=== PATIENT | male | born 1985 | race Caucasian/White ===

== ENCOUNTER 2023-08-28 21:55 | Emergency (ER) | payer OTHER, SELFPAY ==
[2023-08-28 21:57] VITALS: BP 143/108; PULSE 77; RESP 16; TEMP 36.6; O2SAT 100; BMI 28.2
--- NOTE | 2023-08-28 22:27 | CT_ITS ---
The [address] [address] Patient Name: JACK PULIDO MRN: [id number] date: 1985 Sex: M Assigned Patient Location: ER Current Patient Location: ER Accession/Order Number: [id number] Exam Date: 08/28/2023 23:00 Report Date: 08/28/2023 23:37 At the request of: RAUL [facility] Procedure: CT abdomen pelvis wo con EXAM: CT abdomen pelvis wo con HISTORY: right renal colic , right-sided flank pain and nausea. COMPARISON: Abdominal x-ray 12/20/2022 TECHNIQUE: Multiple axial views CT abdomen pelvis without IV contrast. Coronal sagittal reformats. FINDINGS: Visualized lung bases demonstrate a 5 mm solid noncalcified pulmonary nodule at the left lower lobe subpleural region (image 12 series 3) and 2-4 mm solid noncalcified pulmonary nodules at the right middle lobe subpleural region (image 3 series 3). Visualized cardiac apex is unremarkable. Small hiatal hernia. Stomach is underdistended. No perigastric inflammatory stranding. Moderate right hepatic steatosis. Gallbladder, pancreas, spleen, adrenal glands, left kidney, and appendix are unremarkable. Prostate measures 3.4 cm transverse diameter. Mild right hydroureteronephrosis secondary to a 4 mm right ureterovesical junction stone. Mild pancolonic fatty remnant wall thickening. Moderate amount of stool at the right large bowel. No evidence for small bowel obstruction, large ascites, or free air. Small fat-containing umbilical hernia without bowel protrusion. No acute bony abnormality. CT/CT abdomen pelvis wo con IMPRESSION: Mild right hydroureteronephrosis secondary to a 4 mm right ureterovesical junction stone. Moderate hepatic steatosis. Mild pancolonic fatty remnant wall thickening reflecting sequela of prior colonic inflammation. No acute pericolonic inflammatory stranding. Electronically authenticated by: VIVIANE MOSQUEDA Date: 08/28/2023 23:37
--- NOTE | 2023-08-28 22:34 | ED_ITS ---
HPI - Abdominal Pain General Chief Complaint: Abdominal Pain Stated Complaint: Flank Pain Time Seen by Provider: 08/28/23 22:20 Source: patient Mode of arrival: walk-in Limitations: no limitations History of Present Illness HPI narrative: abdominal pain. known history of kidney stone diagnosed about 6 months ago. Has been asymptomatic since. Tonight acute onset of right flank pain with radiation to the suprapubic region. Pain has decreased now since it started at home. did have mild nausea and sl. hematuria. No fever. Related Data Home Medications Medication Instructions Recorded Confirmed escitalopram oxalate 10 mg tablet mg 08/28/23 hydroxyzine HCl 25 mg tablet mg 08/28/23 Allergies Allergy/AdvReac Type Severity Reaction Status Date / Time No Known Drug Allergies Allergy Verified 08/28/23 22:01 Review of Systems ROS Status of ROS 10 or more systems reviewed and unremarkable except as noted in history and below [facility] Social History Smoking status: Never smoker Exam Constitutional Vital Signs, click to edit/add: Last Vital Signs Temp 97.9 F 08/28/23 21:57 Pulse 77 08/28/23 21:57 Resp 16 08/28/23 21:57 BP 143/108 H 08/28/23 21:57 Pulse Ox 100 08/28/23 21:57 O2 Del Method Room Air 08/28/23 21:57 Common normals: no apparent distress, oriented x3 and no limitations HENMT Common normals: normocephalic and head/scalp atraumatic Eye Common normals: EOMs intact bilaterally, conjunctivae normal and no scleral icterus Respiratory Common normals: normal respiratory effort, no retractions and no use of accessory muscles Cardio Common normals: regular rate, regular rhythm, S1 normal heart sound and S2 normal heart sound GI Common normals: Normal to inspection, nondistended, normoactive bowel sounds present, soft to palpation and non-tender Extremity Common normals: normal to inspection and full ROM Neuro Common normals: oriented x3, CN's II-XII intact bilaterally, moves all extremities and no focal motor deficits Psych Common normals: mental status grossly normal Course Vital Signs Vital signs: Vital Signs Temperature 97.9 F 08/28/23 21:57 Pulse Rate 77 08/28/23 21:57 Respiratory Rate 16 08/28/23 21:57 Blood Pressure 143/108 H 08/28/23 21:57 Pulse Oximetry 100 08/28/23 21:57 Oxygen Delivery Method Room Air 08/28/23 21:57 Temperature 97.9 F 08/28/23 21:57 Pulse Rate 77 08/28/23 21:57 Respiratory Rate 16 08/28/23 21:57 Blood Pressure 143/108 H 08/28/23 21:57 Pulse Oximetry 100 08/28/23 21:57 Oxygen Delivery Method Room Air 08/28/23 21:57 MDM - Abdominal Pain MDM Narrative Medical decision making narrative: known history of kidney stones. Presents with right sided abdominal pain. UA with microscopic hematuria. CT with 4mm stone at right UPJ. Patient is now asymptomatic after receiving Toradol. Discharged home to follow up with his doctor Lab Data Labs: Lab Results 08/28/23 08/28/23 Range/Units 22:03 22:05 WBC 7.9 (4.0-11.0) 10^3/uL RBC 5.04 (4.70-6.10) 10^6/uL Hgb 15.8 (14.0-18.0) g/dL Hct 46.1 (42.0-54.0) % MCV 91.5 (80.0-94.0) fL MCH 31.3 (25.9-34.0) pg MCHC 34.3 (29.9-35.2) g/dL RDW 12.3 (11.0-15.0) % Plt Count 315 (150-450) 10^3/uL MPV 9.2 L (9.5-13.5) fL Neut % (Auto) 41.4 L (43.0-75.0) % Lymph % (Auto) 42.7 (20.5-60.0) % [place] % (Auto) 13.1 H (1.7-12.0) % Eos % (Auto) 1.8 (0.9-7.0) % Baso % (Auto) 0.6 (0.2-2.0) % Neut # (Auto) 3.3 (1.4-6.5) 10^3/uL Lymph # (Auto) 3.4 (1.2-3.8) 10^3/uL [place] # (Auto) 1.0 H (0.3-0.8) 10^3/uL Eos # (Auto) 0.1 (0.0-0.7) 10^3/uL Baso # (Auto) 0.1 (0.0-0.1) 10^3/uL Abs Immat Gran (auto) 0.03 (0.00-0.03) 10^3/uL Imm/Tot Granulo (auto) 0.4 (0.0-0.5) % Sodium 139 (136-145) mmol/L Potassium 3.3 L (3.5-5.1) mmol/L Chloride 101 (98-107) mmol/L Carbon Dioxide 27.2 (21.0-32.0) mmol/L Anion Gap 14.1 BUN 11.0 (7.0-18.0) mg/dL Creatinine 0.93 (0.70-1.30) mg/dL Est GFR ( Amer) >60 (>=60) Est GFR (Non-Af Amer) >60 (>=60) BUN/Creatinine Ratio 11.8 Glucose 111 H (74-106) mg/dL Lactate 2.3 H* (0.4-2.0) mmol/L Calcium 9.4 (8.5-10.1) mg/dL Urine Color Lt. yellow (YELLOW) Urine Clarity Clear (CLEAR) Urine pH 7.0 (5.0-9.0) Ur Specific [place] 1.025 (1.005-1.025) Urine Protein Negative (NEG/TRACE) mg/dL Urine Glucose (UA) Negative (NEGATIVE) mg/dL Urine Ketones Negative (NEGATIVE) mg/dL Urine Occult Blood Large A (NEGATIVE) Urine Nitrite Negative (NEGATIVE) Urine Bilirubin Negative (NEGATIVE) Urine Urobilinogen 0.2 (0.2-1.0) EU/dL Ur Leukocyte Esterase Negative (NEGATIVE) Urine RBC 10-20 A (0-2) #/HPF Urine WBC None seen (NONE SEEN) #/HPF Ur Squamous Epith Cells None seen (NONE/RARE) #/LPF Urine Crystals None seen (None Seen) #/HPF Urine Bacteria None seen (NONE SEEN) #/HPF Urine Casts None seen (NONE SEEN) #/LPF Urine Mucus None seen (NONE SEEN) Ur Culture Indicated? No Imaging Data Abdominal x-ray: Radiologist's impression: t the request of: RAUL [facility] Procedure: CT abdomen pelvis wo con EXAM: CT abdomen pelvis wo con HISTORY: right renal colic , right-sided flank pain and nausea. COMPARISON: Abdominal x-ray 12/20/2022 TECHNIQUE: Multiple axial views CT abdomen pelvis without IV contrast. Coronal sagittal reformats. FINDINGS: Visualized lung bases demonstrate a 5 mm solid noncalcified pulmonary nodule at the left lower lobe subpleural region (image 12 series 3) and 2-4 mm solid noncalcified pulmonary nodules at the right middle lobe subpleural region (image 3 series 3). Visualized cardiac apex is unremarkable. Small hiatal hernia. Stomach is underdistended. No perigastric inflammatory stranding. Moderate right hepatic steatosis. Gallbladder, pancreas, spleen, adrenal glands, left kidney, and appendix are unremarkable. Prostate measures 3.4 cm transverse diameter. Mild right hydroureteronephrosis secondary to a 4 mm right ureterovesical junction stone. Mild pancolonic fatty remnant wall thickening. Moderate amount of stool at the right large bowel. No evidence for small bowel obstruction, large ascites, or free air. Small fat-containing umbilical hernia without bowel protrusion. No acute bony abnormality. CT/CT abdomen pelvis wo con IMPRESSION: Mild right hydroureteronephrosis secondary to a 4 mm right ureterovesical junction stone. Moderate hepatic steatosis. Mild pancolonic fatty remnant wall thickening reflecting sequela of prior colonic inflammation. No acute pericolonic inflammatory stranding. Electronically authenticated by: BABATUNDE MOSQUEDA Date: 08/28/2023 23:37 Dictated By: Babatunde Mosqueda M.D. Signed By: 08/28/232338 DD/ 36 TD/TT: Discharge Plan Discharge Chief Complaint: Abdominal Pain Clinical Impression: Renal colic on right side Patient Disposition: Home, Self-Care Prescriptions / Home Meds: No Action hydroxyzine HCl 25 mg tablet escitalopram oxalate 10 mg tablet Instructions: Renal Colic (ED) Stand Alone Forms: Portal Instructions Referrals: TRISTON GREEN [Primary Care Provider] - 1 week
[2023-08-28 22:35] LABS: Basophils Absolute Auto 0.1 10^3/uL (0.0-0.1); Basophils Percent Auto 0.6 % (0.2-2.0); Eosinophils Absolute Auto 0.1 10^3/uL (0.0-0.7); Eosinophils Percent Auto 1.8 % (0.9-7.0); Hematocrit 46.1 % (42.0-54.0); Hemoglobin 15.8 g/dL (14.0-18.0); Immature Granulocytes Abs Auto 0.03 10^3/uL (0.00-0.03); Immature Granulocytes Pct Auto 0.4 % (0.0-0.5); Lymphocytes Absolute Auto 3.4 10^3/uL (1.2-3.8); Lymphocytes Percent Auto 42.7 % (20.5-60.0); Mean Corpuscular HGB Conc 34.3 g/dL (29.9-35.2); Mean Corpuscular Hemoglobin 31.3 pg (25.9-34.0); Mean Corpuscular Volume 91.5 fL (80.0-94.0); Mean Platelet Volume 9.2 fL (9.5-13.5); Monocytes Percent Auto 13.1 % (1.7-12.0); Neutrophils Absolute Auto 3.3 10^3/uL (1.4-6.5); Neutrophils Percent Auto 41.4 % (43.0-75.0); Platelet Count 315 10^3/uL (150-450); Red Blood Count 5.04 10^6/uL (4.70-6.10); Red Cell Distribution Width 12.3 % (11.0-15.0); White Blood Count 7.9 10^3/uL (4.0-11.0)
[2023-08-28 22:35] LABS: Bilirubin Urine NEGATIVE (NEGATIVE); Blood Urine LARGE (NEGATIVE); Clarity Urine CLEAR (CLEAR); Color Urine LT. YELLOW (YELLOW); Glucose Urine UA NEGATIVE (NEGATIVE); Ketones Urine NEGATIVE (NEGATIVE); Leukocyte Esterase Urine NEGATIVE (NEGATIVE); Nitrite Urine NEGATIVE (NEGATIVE); Protein Urine NEGATIVE (NEG/TRACE); Specific Gravity Urine 1.025 (1.005-1.025); Urobilinogen Urine 0.2 EU/dL (0.2-1.0)
[2023-08-28 22:36] LABS: Urine Microscopic Indicated YES
[2023-08-28 22:41] LABS: Bacteria Urine NONE SEEN #/HPF (NONE SEEN); Cast Seen? NONE SEEN #/LPF (NONE SEEN); Crystals Seen? None Seen #/HPF (None Seen); Mucus Urine NONE SEEN (NONE SEEN); Squamous Epithelial Cell Urine NONE SEEN #/LPF (NONE/RARE); Urine Culture Indicated NO; WBC Urine NONE SEEN #/HPF (NONE SEEN)
[2023-08-28 22:45] LABS: Anion Gap 14.1; BUN Creatinine Ratio 11.8; Calcium 9.4 mg/dL (8.5-10.1); Carbon Dioxide 27.2 mmol/L (21.0-32.0); Chloride 101 mmol/L (98-107); Estimated GFR (African America >60 (>=60); Estimated GFR (Non-African Ame >60 (>=60); Glucose 111 mg/dL (74-106); Potassium 3.3 mmol/L (3.5-5.1); Sodium 139 mmol/L (136-145)
[2023-08-28] MEDS: 0.9 % SODIUM CHLORIDE 1,000 ML 999 ML IV (22:53)
[2023-08-28] MEDS: KETOROLAC TROMETHAMINE 30 MG/ML VIAL IVP (22:53)
[2023-08-28 22:56] LABS: Lactate/Lactic Acid 2.3 mmol/L (0.4-2.0)
[2023-08-28] MEDS: ONDANSETRON PF 4 MG/2 ML VIAL IV (23:51)
[2023-08-29 00:22] VITALS: BP 148/106
--- OUTSIDE RECORDS SUMMARY | 2023-10-04 17:01 | XMS_ITS | CCD ---
Author Name Unknown Address [address] [place] [id number] Organization [facility] Care Team Providers Care Lock Fitter Name Role Phone HOWIE ALEJANDRO Unavailable Unavailable Peter, Triston Unavailable Peter, Triston Bustillos Primary Care Physician [phone] PETER, DR GOLDSTEIN Admitting Unavailable GIRVIN, DR GOLDSTEIN Attending Unavailable GIRVIN, DR GOLDSTEIN Primary Care Unavailable GIRVIN, DR GOLDSTEIN Consulting Unavailable GIRVIN, DR GOLDSTEIN Admitting Unavailable GIRVIN, DR GOLDSTEIN Attending Unavailable GIRVIN, DR GOLDSTEIN Primary Care Unavailable GIRVIN, DR GOLDSTEIN Admitting Unavailable GIRVIN, DR GOLDSTEIN Attending Unavailable GIRVIN, DR GOLDSTEIN Primary Care Unavailable GIRVIN, DR GOLDSTEIN Consulting Unavailable ZIEBER, DR CINDA Franco Consulting Unavailable CHIU ., DR GARCIA Admitting Unavailable CHIU ., DR GARCIA Attending Unavailable GIRVIN, DR GOLDSTEIN Primary Care Unavailable GIRVIN, DR GOLDSTEIN Consulting Unavailable ZIEBER, DR CINDA Franco Consulting Unavailable CHIU ., DR GARCIA Admitting Unavailable CHIU ., DR GARCIA Attending Unavailable GIRVIN, DR GOLDSTEIN Primary Care Unavailable CHIU ., DR GARCIA Consulting Unavailable ENOCHEBRASHID, DR CINDA Franco Consulting Unavailable RANJIT, John Franco Attending Unavailable Peter, Triston Bustillos Referring Unavailable NILL, Urban Franco Attending Unavailable Medications Current Medications Medication Drug Class(es) Dates Sig (Normalized) Sig (Original) escitalopram 10 mg oral tablet (4 sources) Serotonin Reuptake Inhibitor Start: 11-14-2020 Lexapro 10 mg Tab 15 mg = 1.5 tab(s), Oral, Daily Start Date: 11/14/20 Status: Ordered Start: 10-21-2020 take 1 mg by mouth once daily Lexapro 10 mg Tab mg tab(s), Oral, Daily Start Date: 11/14/20 Status: Ordered hydrOXYzine hydrochloride 25 mg oral tablet (1 source) Antihistamine Start: 08-31-2023 take 1 tablet by mouth every eight hours hydrOXYzine hydrochloride 25 mg Tab 25 mg = 1 tab(s), Oral, q8hr, Refills(s) 0 Start Date: 08/31/23 Status: Ordered loratadine 10 mg oral tablet (3 sources) Start: 09-14-2023 take 1 tablet by mouth once daily loratadine 10 mg Tab 10 mg = 1 tab(s), Oral, Daily, Refills(s) 0 Start Date: 09/14/23 Status: Ordered take 1 tablet by aristides th every twenty-four hours Loratadine 10 MG 1 tablet Orally Once a day prn Active Multivitamin preparation (1 source) Multivitamin Act nicky Completed/Discontinued Medications Medication Drug Class(es) Dates Sig (Normalized) Sig (Original) famotidine 10 mg oral tablet (2 sources) Histamine-2 Receptor Antagonist Start: 10-21-2020 Pepcid AC 10 MG 1 tablet Orally as directed prn Oct, Not-Taking Psyllium (2 sources) Metamucil prn Not-Taking Metamucil Not-Ta wayne Problems Active Problems Problem Classification Problem Date Documented Da te Episodic/Chronic Anxiety disorders (5 sources) Anxiety; Translations: [Anxiety disorder, unspecified] Onset: 12-11-2021 Resolved: 12-11-2021 Chronic Calculus of urinary tract (7 sources) Kidney stone; Translations: [Calculus of kidney] Onset: 12-20-2022 Episodic Disorders of lipid metabolism (4 sources) Dyslipidemia; Translations: [Hyperlipidemia, unspecified] Onset: 12-11-2021 Resolved: 12-11-2021 Chronic Esophageal disorders (2 sources) Acid reflux; Translations: [Gastro-esophageal reflux disease without esophagitis] Chronic Nausea and vomiting (1 source) Nausea with vomiting, unspecified; Translations: [Nausea with vomiting, unspecified] Onset: 01-25-2018 Episodic Other gastrointestinal disorders (1 source) Diarrhea, unspecified; Translations: [Diarrhea, unspecified] Onset: 01-25-2018 Episodic Other male genital disorders (3 sources) Cyst of epididymis; Translations: [Cyst of epididymis] Onset: 12-20-2022 Episodic Other male genital disorders (1 source) Disorder of male genital organ; Translations: [Other specified disorders of the male genital organs] Onset: 12-20-2022 Episodic Other male genital disorders (2 sources) Disorder of testis 11-14-2020 Episodic Other male genital disorders (2 sources) History of testicular disorder 03-07-2020 Episodic Other male genital disorders (2 sources) Pain of left testicle 11-14-2020 Episodic Other male genital disorders (4 sources) Other specified disorders of the male genital organs; Translations: [OTHER SPEC D/O MALE GENITAL ORGANS] Onset: 10-28-2022 Episodic Other nutritional; endocrine; and metabolic disorders (1 source) Overweight 09-14-2023 Episodic Other nutritional; endocrine; and metabolic disorders (1 source) Overweight in adulthood with body mass index of 25 or more but less than 30 09-14-2023 Episodic Other screening for suspected conditions (not mental disorders or infectious disease) (2 sources) Ultrasound scan abnormal; Translations: [Abnormal findings on diagnostic imaging of other specified body structures] Chronic Other skin disorders (1 source) Mass of trunk; Translations: [Localized swelling, mass and lump, trunk] Onset: 09-14-2023 Episodic Other skin disorders (1 source) Mass of subcutaneous tissue of back 09-14-2023 Episodic Unclassified (1 source) Other general symptoms and signs; Translations: [Other general symptoms and signs] Onset: 01-25-2018 Episodic Past or Other Problems Problem Classification Problem Date Documented Da te Episodic/Chronic Other aftercare (5 sources) Other nursing home (current) drug therapy; Translations: [[employer] CURRENT DRUG THERAPY] Onset: 12-11-2021 Resolved: 12-11-2021 Episodic Other liver diseases (4 sources) Abnormal levels of other serum enzymes; Translations: [ABNORMAL LEVELS OTHER SERUM ENZYMES] Onset: 07-15-2022 Episodic Other nutritional; endocrine; and metabolic disorders (1 source) Abnormal weight gain Onset: 12-11-2021 Resolved: 12-11-2021 Episodic Other screening for suspected conditions (not mental disorders or infectious disease) (1 source) Abnormal blood-gas level Onset: 12-11-2021 Resolved: 12-11-2021 Episodic Results Test Name Value Interpretation Reference Range Facil ity RAD - Ultrasound Reporton RAD - Ultrasound Report [id number] Normal [facility] Ambulatory Visit Summaryon 1 11-14-2022 Ambulatory Visit Summary KINGSLEY DURANT:1985 Visit Date:09/14/2023 Ambulatory Visit Instructions Your Diagnosis Subcutaneous mass of back Tests Performed US Chest or Upper Back, Limited -- Results Pending -- Please visit your patient portal for your results or contact your primary care physician. Your Care Team Attending Physician - Urban ALMANZA MD Primary Care Physician - Triston Green DO Referring Physician - Triston Green DO This Is Your Medications List Contact prescribing physician if questions or concerns escitalopram (Lexapro 10 mg Tab) hydrOXYzine (hydrOXYzine hydrochloride 25 mg Tab) loratadine (loratadine 10 mg Tab) Procedures Performed Tonsillectomy. Discharge Vitals Heart Rate (Peripheral) 108 Respiratory Rate 16 Blood Pressure 144/96 Height 182 cm Height 72 in Weight 94.9 kg Weight 208.78 lb BMI 28.65 Medications What How Much When Instructions Unchanged escitalopram (Lexapro 10 mg Tab) 1.5 Tablets By Mouth Every day Contact prescribing physician if questions or concerns Unchanged hydrOXYzine (hydrOXYzine hydrochloride 25 mg Tab) 1 Tablets By Mouth Every 8 hours Contact prescribing physician if questions or concerns Unchanged loratadine (loratadine 10 mg Tab) 1 Tablets By Mouth Every day Contact prescribing physician if questions or concerns Medications and Immunizations Administered Not Given influenza virus vaccine, inactivated, Patient Refuses Allergies No Known Allergies Problems Ongoing - Any problem that you are currently receiving treatment for. Anxiety BMI 28.0-28.9,adult Epididymal cyst Hx of testicular mass Kidney stone Overweight Subcutaneous mass of back Testicle pain Testicular calcification Patient Survey You may receive a survey via text or e-mail asking about your office visit. Please share your experience with us by completing your survey. We appreciate your feedback and thank you for choosing us for your care. Normal [facility] Physician Referralon 023 Physician Referral [id number] Normal [facility] RAD - MISCon 12-23-2022 RAD MIS [id number] :127 Normal [facility] XR KUB 1 VIEWon 12-21-2022 XR KUB 1 VIEW EXAMINATION: XR KUB 1 VIEW HISTORY: Kidney stone on right COMPARISON: No relevant comparison available. FINDINGS: KIDNEY/URETER - RIGHT: No visible renal or ureteral calcifications. KIDNEY/URETER - LEFT: No visible renal or ureteral calcifications. PELVIS: No visible ureteral stones. BOWEL: No abnormal dilation or deviation. BONES: No acute abnormality. OTHER: Negative. No abnormal gaseous collections. IMPRESSION: 1. No appreciable urinary tract calculi. Electronically authenticated by: CINDA WEAVER Date: 2022-12-21 11:40 Normal [facility] Ambulatory Visit Summaryon 0 12-20-2022 Ambulatory Visit Summary KINGSLEY DURANT :1985 Visit Date:12/20/2022 Ambulatory Visit Instructions Your Diagnosis Testicular calcification Kidney stone Epididymal cyst Tests Performed Urnls Dip Stick Auto w/o Microscopy POC 78949 XR Abdomen 1 View -- Results Pending -- Please visit your patient portal for your results or contact your primary care physician. Your Care Team Attending Physician - John CHIU MD Primary Care Physician - Triston Green DO This Is Your Medications List Contact prescribing physician if questions or concerns escitalopram (Lexapro 10 mg Tab) Procedures Performed Tonsillectomy. Discharge Vitals Heart Rate (Peripheral) 120 Respiratory Rate 16 Blood Pressure 161/108 Height 72 in Height 182 cm Weight 180.4 lb Weight 82 kg BMI 24.76 What to do next You Need to Schedule the Following Appointments Follow Up with John CHIU MD, URL When: Where: [facility] [address] [place] [address]- Medications What How Much When Instructions Unchanged escitalopram (Lexapro 10 mg Tab) Every day Contact prescribing physician if questions or concerns Test Results Urnls Dip Stick Auto w/o Microscopy POC 00019 (12/20/2022) Bilirubin Urine Dipstick - Negative Blood Urine Dipstick - Negative Glucose Urine Dipstick - Negative Ketones Urine Dipstick - Negative Leukocytes Urine Dipstick - Negative Nitrite Urine Dipstick - Negative Protein Urine Dipstick - Negative Specific Lyons Urine Dipstick - 1.025 Urine Appearance Urine Dipstick - Clear Urine Color Urine Dipstick - Yellow Urobilinogen Urine Dipstick - Normal 0.2-1 EU/dl pH Urine Dipstick - 7 Allergies No Known Allergies Problems Ongoing - Any problem that you are currently receiving treatment for. Anxiety Epididymal cyst Hx of testicular mass Kidney stone Testicle pain Testicular calcification Education Materials Testicular Self-Exam A self-examination of your testicles (testicular self-exam) involves looking at and feeling your testicles for abnormal lumps or swelling. Several things can cause swelling, lumps, or pain in your testicles. Some of these causes are: ? Injuries. ? Inflammation. ? Infection. ? Buildup of fluids around your testicle (hydrocele). ? Twisted testicles (testicular torsion). ? Testicular cancer. Why is it important to do a testicular self-exam? Self-examination of the testicles and the left and right groin areas may be recommended if you are at risk for testicular cancer. Your groin is where your lower abdomen meets your upper thighs. You may be at risk for testicular cancer if you have: ? An undescended testicle (cryptorchidism). ? A history of previous testicular cancer. ? A family history of testicular cancer. How to do a testicular self-exam The testicles are easiest to examine after a warm bath or shower. They are more difficult to examine when you are cold. This is because the muscles attached to the testicles retract and pull them up higher or into the abdomen. A normal testicle is egg-shaped and feels firm. It is smooth and not tender. The spermatic cord can be felt as a firm, spaghetti-like cord at the back of your testicle. Look and feel for changes ? Stand and hold your penis away from your body. ? Look at each testicle to check for lumps or swelling. ? Roll each testicle between your thumb and forefinger, feeling the entire testicle. Feel for: ? Lumps. ? Swelling. ? Discomfort. ? Check the groin area between your abdomen and upper thighs on both sides of your body. Look and feel for any swelling or bumps that are tender. These could be enlarged lymph nodes. Contact a health care provider if: ? You find any bumps or lumps, such as a small, hard, pea-sized lump. ? You find swelling, pain, or soreness. ? You see or feel any other changes in your testicles. Summary ? A self-examination of your testicles (testicular self-exam) involves looking at and feeling your testicles for any changes. ? Self-examination of the testicles and the left and right groin areas may be recommended if you are at risk for testicular cancer. ? You should check each of your testicles for lumps, swelling, or discomfort. ? You should check for swelling or tender bumps in your groin area between your lower abdomen and upper thighs. This information is not intended to replace advice given to you by your health care provider. Make sure you discuss any questions you have with your health care provider. Document Released: 01/09/2002 Document Revised: 01/24/2020 Document Reviewed: 08/29/2017 [employer] Patient Education ? 2019 [employer]. Normal [facility] Patient Educationon 12-21-19 Patient Education Urology Testicular Self-Exam A self-examination of your testicles (testicular self-exam) involves looking at and feeling your testicles for abnormal lumps or swelling. Several things can cause swelling, lumps, or pain in your testicles. Some of these causes are: ? Injuries. ? Inflammation. ? Infection. ? Buildup of fluids around your testicle (hydrocele). ? Twisted testicles (testicular torsion). ? Testicular cancer. Why is it important to do a testicular self-exam? Self-examination of the testicles and the left and right groin areas may be recommended if you are at risk for testicular cancer. Your groin is where your lower abdomen meets your upper thighs. You may be at risk for testicular cancer if you have: ? An undescended testicle (cryptorchidism). ? A history of previous testicular cancer. ? A family history of testicular cancer. How to do a testicular self-exam The testicles are easiest to examine after a warm bath or shower. They are more difficult to examine when you are cold. This is because the muscles attached to the testicles retract and pull them up higher or into the abdomen. A normal testicle is egg-shaped and feels firm. It is smooth and not tender. The spermatic cord can be felt as a firm, spaghetti-like cord at the back of your testicle. Look and feel for changes ? Stand and hold your penis away from your body. ? Look at each testicle to check for lumps or swelling. ? Roll each testicle between your thumb and forefinger, feeling the entire testicle. Feel for: ? Lumps. ? Swelling. ? Discomfort. ? Check the groin area between your abdomen and upper thighs on both sides of your body. Look and feel for any swelling or bumps that are tender. These could be enlarged lymph nodes. Contact a health care provider if: ? You find any bumps or lumps, such as a small, hard, pea-sized lump. ? You find swelling, pain, or soreness. ? You see or feel any other changes in your testicles. Summary ? A self-examination of your testicles (testicular self-exam) involves looking at and feeling your testicles for any changes. ? Self-examination of the testicles and the left and right groin areas may be recommended if you are at risk for testicular cancer. ? You should check each of your testicles for lumps, swelling, or discomfort. ? You should check for swelling or tender bumps in your groin area between your lower abdomen and upper thighs. This information is not intended to replace advice given to you by your health care provider. Make sure you discuss any questions you have with your health care provider. Document Released: 01/09/2002 Document Revised: 01/24/2020 Document Reviewed: 08/29/2017 [employer] Patient Education ? 2019 [employer]. Normal [facility] Reminderson 12-20-2022 Reminders - From: Duyen Jones To: EU Beto Chiu; Sent: 12/20/2022 14:14:18 EST Show up: 09/16/2025 14:14:00 EST Subject: scrotal US and F/u in 2025 Due Date/Time: 10/07/2025 14:14:00 EST Reminder/Recall Pt is due in December 2025 for 3 year fu with scrotal US Normal [facility] Urology Office/Clinic Noteon 12-20-2022 Urology Office/Clinic Note Chief Complaint 2yr Scrotal US HPI Staff 2yrs w/Scrotal US due to epididymal cyst, testicular calcification & testicular pain. Scrotal US done 10/28/22 Pt denies any testicular/scrotal complaints at this time. B/P taken twice today. Both times +160/+100. Pt states he has seen his PCP for this, BP increases every time he sees a DR. History of Present Illness Tests reviewed: reviewed UA. I have reviewed the previous health record information and history for this patient from Dr. Chiu. I have reviewed and verified the staff HPI to be accurate for this encounter. There have been no associated fever, chills, flank pain, or blood in the urine. Denies any urinary infections since last encounter. Review of Systems PHQ Score Initial Depression Screen Score: 0 ROS - Provider Constitutional: denies weight loss, denies hot flashes. Eyes: denies eye problems. Gastrointestinal: denies nausea, denies vomiting. Cardiovascular: denies chest pain or angina. Integumentary: no dryness Musculoskeletal: denies musculoskeletal symptoms. ENMT: denies otolaryngeal symptoms. Respiratory: no shortness of breath. Heme/Lymph: denies easy bleeding tendency, denies easy bruising tendency. Psychiatric: no confusion, no anxiety. Genitourinary: See HPI. Physical Exam Vitals & Measurements HR: 120(Peripheral) RR: 16 BP: 161/108 HT: 72 in HT: 182 cm WT: 82 kg WT: 180.4 lb BMI: 24.76 General Appearance: alert, no distress, well nourished, well developed male. Genitourinary: normal scrotum, normal testes, normal urethra, normal epididymis, normal vas deferens/spermatic cord. Flank Pain: none. Bladder: nonpalpable. Assessment/Plan 1. 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 Scrotal US done 10/28/22 shows stable 2 mm calcification within left testicle of doubtful clinical significance. UA today negative for blood and infection. Denies any testicular/scrotal complaints at this time. Explained higher statistical association of testicular cancer with presence of testicular calcifications. Will continue to monitor. -scrotal US in 3 years -regular self testicular exams 2. Kidney stone (N20.0: Calculus of kidney) RENETTA done 07/15/22 showed incidental finding of a right nonobstructing 7 x 5 x 4 mm stone. Has not had any pain. Pt's first stone. Recommended ESWL if stone is visible on x-ray. If not visible on x-ray but pt wishes to proceed with tx, would have to proceed with ureteroscopy/laser litho. The procedure risks, benefits, details and treatment alternatives have been discussed with the patient. These include blood in the urine, infection, bleeding around the kidney, kidney bruising, inability to break up the stone, need for blood transfusion, blockage from stone fragments, and need for additional procedures, among others. Full informed consent has been obtained. Follow up after below or sooner if needed. Pt understands and agrees with plan. -KUB now 3. Epididymal cyst (N50.3: Cyst of epididymis) Scrotal US 11/03/20 shows stable 3 mm left epididymal cyst. Scrotal US done 10/28/22 shows 2 mm benign-appearing cyst within the had of the epididymis. Benign, not worrisome. -regular self testicular exams Follow-up With When Contact Information RANJIT HART, John Franco, URL [facility] [address], [place] [address]- Additional Instructions: KUB now Patient Education Testicular Self-Exam I, Darlene Dueñas, personally scribed for Dr. Chiu on 12/20/2022 14:05:14. . Documentation recorded by the scribe, Darlene Dueñas, accurately reflects the services(s) I performed and decisions made by me. Authenticated by Dr. Chiu on 12/20/2022 14:07:47. Problem List/Past Medical History Ongoing Anxiety Epididymal cyst Hx of testicular mass Kidney stone Testicle pain Testicular calcification Historical No qualifying data Procedure/Surgical History Tonsillectomy. Medications Lexapro 10 mg Tab, Oral, Daily Allergies No Known Allergies Social History Alcohol - Low Risk, 03/05/2020 Tobacco Former smoker, quit more than 30 days ago Tobacco Use:. Never Smokeless Tobacco Use:., 12/20/2022 Family History Malignant granular cell myoblastoma: Child. Primary malignant neoplasm of lung: Father. Immunizations Vaccine Date Status influenza virus vaccine, inactivated 08/27/2019 Recorded measles/mumps/rubella virus vaccine 02/12/2000 Recorded Lab Results Ambulatory Point of Care Results Bilirubin Urine Dipstick: Negative (12/20/22 12:59:00) Blood Urine Dipstick: Negative (12/20/22 12:59:00) Glucose Urine Dipstick: Negative (12/20/22 12:59:00) Ketones Urine Dipstick: Negative (12/20/22 12:59:00) Leukocytes Urine Dipstick: Negative (12/20/22 12:59:00) Nitrite Urine Dipstick: Negative (12/20/22 12:59:00) Protein (more content not included)... Normal [facility] Comment on above: Result Comment: Elec tronically Signed By: John CHIU MD\.br\Date and Time Signed: 12/20/22 14:07 EST\.br\Electronically Co-Signed By: Darlene Dueñas\.br\Date and Time Co-Signed: 12/20/22 14:05 EST RAD - Ultrasound Reporton RAD - Ultrasound Report [id number]:127 Normal [facility] US SCROTUMon 10-28-2022 US SCROTUM EXAMINATION: US SCRO LAURA HISTORY: Pain in testicle ; follow-up testicular calcification COMPARISON: Ultrasound scrotum 11/03/2020 TECHNIQUE: High-resolution sonographic imaging of the scrotum and contents was performed. FINDINGS: RIGHT: TESTICLE: Homogeneous echotexture. No visible mass. Color Doppler flow is present. Spectral Doppler demonstrates normal arterial waveform and flow, 6/2 cm/s (PSV/EDV), and normal venous wave flow averaging 1 cm/s. EPIDIDYMIS: Normal size and echogenicity. OTHER: None. LEFT: TESTICLE: Stable 2 mm calcification within inferior pole. Homogeneous echotexture. No visible mass. Color Doppler flow is present. Spectral Doppler demonstrates arterial waveform and flow, 3/2 cm/s (PSV/EDV), and normal venous flow averaging 1 cm/s. EPIDIDYMIS: Incidental 2 mm benign-appearing cyst within head of epididymis. OTHER: None. IMPRESSION: 1. Stable 2 mm calcification within left testicle of doubtful clinical significance. No appreciable mass or heterogeneity. Electronically authenticated by: CINDA WEAVER Date: 2022-10-28 15:47 Normal [facility] Physician Orderon 10-14-2022 Physician Order [id number]:127 Normal [facility] US SINGLE QUAD RT UPPERon US SINGLE QUAD RT UPPER EXAMINATION: US SINGLE QUAD RT UPPER HISTORY: High enzyme level in serum ; elevated liver enzymes COMPARISON: No relevant comparison available. TECHNIQUE: Transabdominal evaluation of the right upper quadrant. FINDINGS: LIVER: Increased echogenicity consistent with fatty infiltration; focal area of fat sparing near gallbladder fossa. Normal size and contour. Color Doppler demonstrates patent hepatic veins. PORTAL VEIN: Duplex Doppler demonstrates normal hepatopetal flow pattern with flow velocity averaging 29 cm/s. GALLBLADDER: No visible gallstones, wall thickening, or pericholecystic free fluid. Negative sonographic Godinez's sign. BILIARY: No abnormal dilation or stones. Common bile duct diameter is within normal limits. PANCREASE: No visible mass, abnormal atrophy, or duct dilation. KIDNEY: Contains a nonobstructing 7 x 5 x 4 mm stone. Size: 13.3 x 5.7 x 5.7 cm IMPRESSION: 1. Elevated hepatic echotexture suggestive of fatty infiltration. Electronically authenticated by: CINDA WEAVER Date: 2022-07-15 08:39 Normal [facility] l CBC AUTO DIFFon 07-01-2022 BASO # 0.0 103/ul Normal 0.0-0.1 [facility] Comment on above: Performed By: #### C BC #### [facility] [address] [place] [address] Dr. Patti Goncalves Basophils/100 WBC (Bld) 0.5 % Normal 0.2-2.0 [facility] Comment on above: Performed By: #### C BC #### [facility] [address] [place], [place] [address] Dr. Patti Goncalves EO # 0.2 103/ul Normal 0.0-0.7 [facility] Comment on above: Performed By: #### C BC #### [facility] [address] [place] [address] Dr. Patti Goncalves Eosinophils/100 WBC (Bld) 3.2 % Normal 0.9-7.0 [facility] Comment on above: Performed By: #### C BC #### [facility] [address] [place] [address] Dr. Patti Goncalves Erythrocyte distribution wid th (RBC) [Ratio] 12.6 % Normal 11.0-15.0 [facility] Comment on above: Performed By: #### C BC #### [facility] [address] [place] [address] Dr. Patti Goncalves Hematocrit (Bld) [Volume fraction] 47.1 % Normal 4 2.0-54.0 [facility] Comment on above: Performed By: #### C BC #### [facility] [address] [place] [address] Dr. Patti Goncalves Hemoglobin (Bld) [Mass/Vol] 16.2 g/dL Normal 14.0-18. 0 [facility] Comment on above: Performed By: #### C BC #### [facility] [address] [place] [address] Dr. Patti Goncalves IG # 0.02 10e3/ul Normal 0.00-0.03 [facility] Comment on above: Performed By: #### C BC #### [facility] [address] [place] [address] Dr. Patti Goncalves IG % 0.3 % Normal 0.0-0.5 [facility] Comment on above: Performed By: #### C BC #### [facility] [address] [place] [address] Dr. Patti Goncalves LYMPH # 1.9 103/ul Normal 1.2-3.8 [facility] Comment on above: Performed By: #### C BC #### [facility] [address] [place] [address] Dr. Patti Goncalves Lymphocytes/100 WBC (Bld) 24.5 % Normal 20.5-60.0 [facility] Comment on above: Performed By: #### C BC #### [facility] [address] [place] [address] Dr. Patti Goncalves MANUAL DIFF REQ NO Normal [facility] Comment on above: Performed By: #### C BC #### [facility] [address] [place] [address] [address] Patti Goncalves MCH (RBC) [Entitic mass] 31.4 pg Normal 25.9-34.0 [facility] Comment on above: Performed By: #### C BC #### [facility] [address] [place] [address] Dr. Patti Goncalves MCHC (RBC) [Mass/Vol] 34.4 g/dL Normal 29.9-35.2 [facility] Comment on above: Performed By: #### C BC #### [facility] [address] [place] [address] Dr. Patti Goncalves MCV (RBC) [Entitic vol] 91.3 fL Normal 80.0-94.0 [facility] Comment on above: Performed By: #### C BC #### [facility] [address] [place] [address] Dr. Patti Goncalves MONO # 1.1 103/ul Critically high 0.3-0.8 [facility] Comment on above: Performed By: #### C BC #### [facility] [address] [place] [address] Dr. Patti Goncalves Monocytes/100 WBC (Bld) 14.2 % Critically high 1.7-12. 0 [facility] Comment on above: Performed By: #### C BC #### [facility] [address] [place] [address] Dr. Patti Goncalves NEUT # 4.4 103/ul Normal 1.4-6.5 [facility] Comment on above: Performed By: #### C BC #### [facility] [address] [place] [address] Dr. Patti Goncalves Neutrophils/100 WBC (Bld) 57.3 % Normal 43.0-75.0 [facility] Comment on above: Performed By: #### C BC #### [facility] [address] [place] [address] Dr. Patti Goncalves Platelet mean volume (Bld) [Entitic vol] 8.9 fL Critically low 9.5-13.5 [facility] Comment on above: Performed By: #### C BC #### [facility] [address] [place] [address] Dr. Patti Goncalves PLT 272 103/ul Normal 150-450 [facility] Comment on above: Performed By: #### C BC #### [facility] [address] [place] [address] Dr. Patti Goncalves RBC 5.16 106/ul Normal 4.70-6.10 [facility] Comment on above: Performed By: #### C BC #### [facility] [address] [place] [address] Dr. Patti Goncalves WBC 7.6 103/ul Normal 4.0-11.0 [facility] Comment on above: Performed By: #### C BC #### [facility] [address] [place] [address] Dr. Patti Goncalves LIPID PROFILEon 07-01-2022 CHOL-HDL RATIO NORM SEE BELOW Normal [facility] Comment on above: Result Comment: 3.3 - 4.4 LOW RISK 4.4 - 7.1 AVERAGE RISK 7.1 - 11.0 MODERATE RISK >11.0 HIGH RISK Performed By: #### L IPID, CMP #### [facility] [address] [place] [address] Dr. Patti Goncalves Cholesterol [Mass/Vol] 149 mg/dL Normal <=200 [facility] Comment on above: Performed By: #### L IPID, CMP #### [facility] [address] [place] [address] Dr. Patti Goncalves Cholesterol in HDL [Mass/Vol] 47 mg/dL Normal 40-60 [facility] Comment on above: Performed By: #### L IPID, CMP #### [facility] [address] [place] [address] Dr. Patti Goncalves Cholesterol in LDL [Mass/Vol] 89.6 mg/dL Normal [facility] Comment on above: Performed By: #### L IPID, CMP #### [facility] [address] [place] [address] Dr. Patti Goncalves Cholesterol.total/Cholestero l in HDL [Mass ratio] 3.2 {ratio} Normal [facility] Comment on above: Performed By: #### L IPID, CMP #### [facility] [address] [place] [address] Dr. Patti Goncalves HDL NORMAL > or = 60 mg/dl - LO W CARDIOVASCULAR RISK <40 mg/dl - HIGH CARDIOVASCULAR RISK Normal [facility] Comment on above: Performed By: #### L IPID, CMP #### [facility] [address] [place] [address] Dr. Patti Goncalves LDL CALC NORMAL SEE BELOW Normal [facility] Comment on above: Result Comment: <100 mg/dl OPTIMAL 100 - 129 mg/dl NEAR OR ABOVE OPTIMAL 130 - 159 mg/dl BORDERLINE HIGH 160 - 189 mg/dl HIGH >190 mg/dl VERY HIGH Performed By: #### L IPID, CMP #### [facility] [address] [place] [address] Dr. Patti Goncalves Triglyceride [Mass/Vol] 62 mg/dL Normal <=150 [facility] Comment on above: Performed By: #### L IPID, CMP #### [facility] [address] [place] [address] Dr. Patti Goncalves VLDL CALC 12.4 mg/dL Normal [facility] Comment on above: Performed By: #### L IPID, CMP #### [facility] [address] [place] [address] Dr. Patti Goncalves PROF 14(COMP METB)on 022 Albumin [Mass/Vol] 4.4 g/dL Normal 3.4-5.0 [facility] Comment on above: Performed By: #### L IPID, CMP #### [facility] [address] [place] [address] Dr. Patti Goncalves Albumin/Globulin [Mass ratio] 1.5 {ratio} Normal [facility] Comment on above: Performed By: #### L IPID, CMP #### [facility] [address] [place] [address] Dr. Patti Goncalves ALP [Catalytic activity/Vol] 62 U/L Normal 46-116 [facility] Comment on above: Performed By: #### L IPID, CMP #### [facility] [address] [place] [address] [address] Patti Goncalves ALT [Catalytic activity/Vol] 65 U/L Critically high 16 -63 [facility] Comment on above: Performed By: #### L IPID, CMP #### [facility] [address] [place] [address] [address] Patti Goncalves Anion gap [Moles/Vol] 9.8 mmol/L Normal [facility] Comment on above: Performed By: #### L IPID, CMP #### [facility] [address] [place] [address] [address] Patti Goncalves AST [Catalytic activity/Vol] 20 U/L Normal 15-37 [facility] Comment on above: Performed By: #### L IPID, CMP #### [facility] [address] [place] [address] [address] Patti Goncalves Bilirubin [Mass/Vol] 1.0 mg/dL Normal 0.2-1.0 [facility] Comment on above: Performed By: #### L IPID, CMP #### [facility] [address] [place] [address] Dr. Patti Goncalves Calcium [Mass/Vol] 9.0 mg/dL Normal 8.5-10.1 [facility] Comment on above: Performed By: #### L IPID, CMP #### [facility] [address] [place] [address] [address] Patti Goncalves Chloride [Moles/Vol] 101 mmol/L Normal 98-107 [facility] Comment on above: Performed By: #### L IPID, CMP #### [facility] [address] [place] [address] Dr. Patti Goncalves CO2 [Moles/Vol] 29.1 mmol/L Normal 21.0-32.[address] [facility] Comment on above: Performed By: #### L IPID, CMP #### [facility] [address] [place] [address] Dr. Patti Goncalves Creatinine [Mass/Vol] 0.86 mg/dL Normal 0.70-1.30 [facility] Comment on above: Performed By: #### L IPID, CMP #### [facility] [address] [place] [address] Dr. Patti Goncalves EGFR-AF FINNISH >60 Normal >=[address] [facility] Comment on above: Performed By: #### L IPID, CMP #### [facility] [address] [place] [address] [address] Patti Goncalves EGFR-NON AF FINNISH >60 Normal >=60 [facility] Comment on above: Performed By: #### L IPID, CMP #### [facility] [address] [place] [address] Dr. Patti Goncalves Globulin (S) [Mass/Vol] 3.0 g/dL Normal [facility] Comment on above: Performed By: #### L IPID, CMP #### [facility] [address] [place] [address] Dr. Patti Goncalves Glucose [Mass/Vol] 93 mg/dL Normal 74-106 [facility] Comment on above: Performed By: #### L IPID, CMP #### [facility] [address] [place] [address] Dr. Patti Goncalves Potassium [Moles/Vol] 3.9 mmol/L Normal 3.5-5.1 [facility] Comment on above: Performed By: #### L IPID, CMP #### [facility] [address] [place] [address] Dr. Patti Goncalves Protein [Mass/Vol] 7.4 g/dL Normal 6.4-8.2 [facility] Comment on above: Performed By: #### L IPID, CMP #### [facility] [address] [place] [address] Dr. Patti Goncalves Sodium [Moles/Vol] 136 mmol/L Normal 136-145 [facility] Comment on above: Performed By: #### L IPID, CMP #### [facility] [address] [place] [address] Dr. Patti Goncalves Urea nitrogen [Mass/Vol] 10.0 mg/dL Normal 7.0-18.0 [facility] Comment on above: Performed By: #### L IPID, CMP #### [facility] [address] [place] [address] [address] Patti Goncalves Urea nitrogen/Creatinine [Mass ratio] 11.6 mg/mg Normal [facility] Comment on above: Performed By: #### L IPID, CMP #### [facility] [address] [place] [address] [address] Patti Goncalves Basic Metabolic Panlon 01-25 Anion gap 18 mmol/L Normal 9-18 [facility] Comment on above: Performed By: #### B SIMONE, MG1 ####[facility] [place] [phone] Calcium 10.6 mg/dL High 8.5-10.2 [facility] Comment on above: Performed By: #### B SIMONE, MG1 ####[facility] [phone] Chloride 99 mmol/L Normal 97-105 [facility] Comment on above: Performed By: #### B SIMONE, MG1 ####[facility] [phone] CO2 24 mmol/L Normal 22-30 [facility] Comment on above: Performed By: #### B SIMONE, MG1 ####[facility] [phone] Creatinine 1.09 mg/dL Normal 0.73-1.22 [facility] Comment on above: Performed By: #### B SIMONE, MG1 ####[facility] [address] [place] [phone] eGFR (non-black) mL/min/{1.73_m2} Normal [facility] Comment on above: Result Comment: eGFR (Estimated GFR) Units of measure: mL/min/1.73 meters squaredeGFR is derived from the reexpressed MDRD Study equation using the following parameters: serum creatinine, age, gender and race. The creatinine assay has been calibrated to be traceable to IDMS.An eGFR <60 mL/min/1.73m2 for >3 months is consistent with chronic kidney disease. Refer to KDOQI guidelines for clinical interpretation.In patients with unstable renal function, e.g. those with acute kidney injury, the eGFR may not accurately reflect actual GFR. Performed By: #### B SIMONE, MG1 ####[facility], [place] [phone] Glucose mass conc 110 mg/dL High 74-99 [facility] Comment on above: Result Comment: The [place] [employer] (ADA) provides guidance for cutoff values for fasting glucose and random glucose. The ADA defines fasting as no caloric intake for at least 8 hours. Fasting plasma glucose results between 100 to 125 mg/dL indicate increased risk for diabetes (prediabetes).Fasting plasma glucose results greater than or equal to 126 mg/dL meet the criteria for diagnosis of diabetes. In the absence of unequivocal hyperglycemia, results should be confirmed by repeat testing. In a patient with classic symptoms of hyperglycemia or hyperglycemic crisis, random plasma glucose results greater than or equal to 200 mg/dL meet the criteria for diagnosis of diabetes.Reference: Standards of Medical Care in Diabetes 2016, [place] [employer] Association. Diabetes Care. 2016.39(Suppl 1). Performed By: #### B SIMONE, MG1 ####[facility] [address] [place], [place] [phone] Potassium molar conc 4.0 mmol/L Normal 3.7-5.1 [facility] Comment on above: Performed By: #### B SIMONE, MG1 ####[facility] [address] [place], [place] [phone] Sodium 141 mmol/L Normal 136-144 [facility] Comment on above: Performed By: #### B SIMONE, MG1 ####[facility] [address] [place], [place] [phone] Urea nitrogen 18 mg/dL Normal 9-24 [facility] Comment on above: Performed By: #### B MP, MG1 ####[facility] [address] [place], [place] [phone] ED NOTEon 01-25-2018 ED NOTE HNO ID: [id number] Author: Nneka LopezCt) GALLO Menendez Service: Emergency Medicine Author Type: Field Account Manager Type: ED Notes Filed: 01/25/2018 6:02 AM Note Text: Updating Pt Vs Normal [facility] ED NOTE HNO ID: [id number] Author: Nneka LopezCt) GALLO Menendez Service: Emergency Medicine Author Type: Field Account Manager Type: ED Notes Filed: 01/25/2018 1:27 AM Note Text: Took Pt vs Normal [facility] ED PROV NOTEon 01-25-2018 ED PROV NOTE HNO ID: [id number] thor: EITAN Shearerervice: [facility] MedicineAuthor Type: PhysicianType: ED Provider NotesFiled: 01/25/2018 4:18 PMNote Text:ED Provider NotePatient Name: Kingsley DurantMRN: [id number] DATE: 01/25/18HistoryPatient presents with:Flu Like Symptoms: Pt's son on M50, tested flu B+. Pt sts has started withsymptoms as well.HPI Comments: The patient is a 32-year-old male presents the emergencydepartment with cough, congestion, body aches, nausea, diarrhea. He hasno significant past medical history. The patient's son is admitted to thehospital and is positive for influenza B. Patient states he feelsdehydrated. His cough is nonproductive. His body aches are 4 out of 10and dull in nature. Nothing makes them worse and nothing makes thembetter. He reports a few episodes of nausea and diarrhea. 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 Negative for ear pain, sinus pressure andsore throat.Eyes: Negative for photophobia, redness and visual disturbance.Respiratory: Positive for cough. Negative for shortness of breath andwheezing.Cardiovascular: Negative for chest pain, palpitations and leg swelling.Gastrointestinal: Positive for diarrhea, nausea and vomiting. Negative forabdominal pain.Endocrine: Negative for polydipsia, polyphagia and polyuria.Genitourinary: Negative for dysuria, flank pain, frequency and urgency.Musculoskeletal: Negative for back pain, myalgias, neck pain and neckstiffness.Skin: Negative for color change, pallor, rash and wound.Neurological: Negative for dizziness, tremors, syncope and weakness.Physical ExamBP 139/90 Pulse 125 Temp (Src) 98 (Oral) Resp 20 Ht 6' 0 (1.83m) Wt 185 lb (83.9kg) SpO2 100% BMI 25.08 kg/(m2).Physical ExamConstitutional: He is oriented to person, place, and time. He appearswell-developed and well-nourished. No distress.HENT:Head: Normocephalic and atraumatic.Mouth/Throat: Uvula is midline, oropharynx is clear and moist and mucousmembranes are normal.Eyes: Conjunctivae are normal. Right eye exhibits no discharge. Left eyeexhibits no discharge. No scleral icterus.Neck: Trachea normal, normal range of motion and full passive range ofmotion without pain. Neck supple. No JVD present. Carotid bruit is notpresent. No tracheal deviation present.Cardiovascular: Normal rate, regular rhythm, S1 normal, S2 normal andnormal heart sounds. PMI is not displaced. Exam reveals no gallop, noS3, no S4 and no friction rub.No murmur heard.Pulses: Carotid pulses are 2+ on the right side, and 2+ on the left side.Pulmonary/Chest: Effort normal and breath sounds normal. No accessorymuscle usage. No respiratory distress. He has no decreased breath sounds.He has no wheezes. He has no rhonchi. He has no rales. He exhibits notenderness.Abdominal: Soft. Bowel sounds are normal. He exhibits no distension and nomass. There is no tenderness. There is no rebound, no guarding and no CVAtenderness.Musculoskeletal: Normal range of motion. He exhibits no edema ortenderness.Neurological: He is alert and oriented to person, place, and time. GCS eyesubscore is 4. GCS verbal subscore is 5. GCS motor subscore is 6.Skin: Skin is warm and dry. No rash noted. He is not diaphoretic. Nocyanosis or erythema. No pallor. Nails show no clubbing.Psychiatric: He has a normal mood and affect. His behavior is normal.Nursing note and vitals reviewed.Diagnostic TestingED Labs Ordered and ReviewedBASIC METABOLIC PNL - Abnormal; Notable for the following: Result Value Ref Range Glucose 110 (*) 74 - 99 mg/dL Calcium 10.6 (*) 8.5 - 10.2 mg/dL All other components within normal limitsFLU A/B B/O - NormalMAGNESIUM BLDInfluenza A and B were negative. Magnesium within limits. BMPunremarkable.ProceduresMedical Decision Making / ED CourseED CourseThe patient presented the emergency department with flulike symptoms. Hisson is upstairs in the hospital admitted. Patient was treated with 2 L ofnormal saline, Phenergan, Zofran with good relief of symptoms. Hisinfluenza A and B are negative. Electrolytes are unremarkable. Lung examis benign. Abdominal exam is benign. His vital signs are stable.Patient was improved at the end of the visit. He requested to bedischarged to go back up to the hospital. He was discharged in stablecondition. He will follow-up as below.Encounter Diagnosis ICD-10-CM1. Non-intractable vomiting with nausea, unspecified vomiting type R11.22. Diarrhea, unspecified type R19.73. Flu-like symptoms R68.06Rzdi4. Discharge home2. Take Phenergan as needed3. Follow-up with primary care provider as needed4. 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 My mai findings include:History is as above, 2 y/o son and are seriously ill causing a greatdeal of stress. Additionally, the son is flu positive.Exam: as above, much improved after ivf and medsAssessment/Plan: Dehydration, nausea, follow-up PCPSignature: ALEXX Shearerate: 01/25/2018Time: 4:16 Deann Alejandro MD01/25/18 1618 Normal [facility] Magnesiumon 01-25-2018 Magnesium 2.3 mg/dL Normal 1.7-2.3 [facility] Comment on above: Performed By: #### B MP, MG1 ####[facility] [address] [place], [place] [phone] Vital Signs Date Time Vital Sign Value Performing Clinician Facility 09-14-2023 13:17-0500 Blood Pressure Location Urban ALMANZA [facility] 09-14-2023 13:17-0500 Diastolic blood pressure 96 mm[Hg] Urban ALMANZA [facility] 09-14-2023 13:17-0500 Heart rate 108 /min Urban ALMANZA [facility] 09-14-2023 13:17-0500 Respiratory rate 16 /min Urban ALMANZA [facility] 09-14-2023 13:17-0500 Systolic blood pressure 144 mm[Hg] Urban ALMANZA [facility] 12-20-2022 13:07-0500 Diastolic blood pressure 108 mm[Hg] John [facility] 12-20-2022 13:07-0500 Mean blood pressure 126 mm[Hg] John [facility] 12-20-2022 13:07-0500 Systolic blood pressure 161 mm[Hg] John [facility] 12-20-2022 13:01-0500 Blood Pressure Location John [facility] 12-20-2022 13:01-0500 Diastolic blood pressure 112 mm[Hg] John [facility] 12-20-2022 13:01-0500 Heart rate 120 /min John [facility] 12-20-2022 13:01-0500 Respiratory rate 16 /min John [facility] 12-20-2022 13:01-0500 Systolic blood pressure 167 mm[Hg] John [facility] 12-11-2021 09:10-0500 Body height 179.71 cm [place] Other [facility] Other 12-11-2021 09:10-0500 Body mass index (BMI) [Ratio] 28.93 kg/m2 [place] Other [facility] Other 12-11-2021 09:10-0500 Body temperature 97.1 [degF] [place] Other [facility] Other 12-11-2021 09:10-0500 Body weight 93.44 kg [place] Other [facility] Other 12-11-2021 09:10-0500 Diastolic blood pressure 82 mm[Hg] Triston Green Other [facility] Other 12-11-2021 09:10-0500 Respiratory rate 18 /min Triston Green Other [facility] Other 12-11-2021 09:10-0500 SaO2% (BldA) [Mass fraction] 98 % Triston Green Other [facility] Other 12-11-2021 09:10-0500 Systolic blood pressure 124 mm[Hg] Triston Green Other [facility] Other Encounters Encounter Date Encounter Type Care Provider Facility Start: 09-14-2023 End: 09-15-2023 ambulatory Triston Green Facility:[facility] Start: 09-14-2023 End: 09-14-2023 Patient encounter procedure Urban ALMANZA General Surgery [facility] [place] Start: 08-18-2023 ambulatory John CHIU Facility :[facility] Start: 12-20-2022 End: 12-21-[address] JOHN CHIU . Facility: Start: 12-20-2022 End: 12-21-2022 ambulatory John CHIU Facility:[facility] Start: 12-20-2022 End: 12-20-2022 Patient encounter procedure John CHIU [facility] Start: 10-28-2022 End: 10-29-[address] JOHN CHIU . Facility: Start: 07-23-2022 End: 07-23-2022 ambulatory Triston Green Other [facility] Other Start: 07-23-2022 Telephone encounter Triston Green [facility] [place] Start: 07-15-2022 End: 07-16-[address] TRISTON GREEN Facility:[facility] Start: 07-01-2022 End: 07-02-[address] TRISTON GREEN Facility:[facility] Start: 12-11-2021 End: 12-11-2021 ambulatory Triston Green Other [facility] Other Start: 12-11-2021 Encounter for genera l adult medical examination without abnormal findings Triston Green [facility] Start: 12-11-2021 Periodic preventive med est patient 18-39 yrs Triston Green [facility] Start: 01-25-2018 End: 01-25-2018 Emergency department patient visit HOWIE Medeiros [facility] Procedures Date Procedure Procedure Detail Performing Clinician Tonsillectomy John CHIU Immunizations Immunization Date Immunization Notes Care Provider Zeny stockton 08-27-2019 influenza virus vaccine, unspecified formulation John CHIU [facility] 02-12-2000 measles, mumps and rubella virus vaccine John CHIU [facility] NEGATED: Highlighted row has not occurred!09-14-2023 influenza virus vaccine, unspecified formulation Urban ALMANZA [facility] [place] Payers Date Payer Category Payer Private Health Insurance [id number] 1987 Unknown [id number] 2.16.84 [id number] 1987 Unknown [id number] 2.16.84 [id number] 1987 Unknown [id number] 2.16.84 [id number] 1987 Unknown [id number] 2.16.84 [id number] 1987 Unknown [id number] 2.16.84 [id number] 1987 Unknown [id number] 2.16.8 [id number] 1987 Unknown [id number] 2.16.8 [id number] 1959 Private Health Insurance [id number] 1957 Self-pay Social History Date Type Detail Facility Unknown if ever smoked [facility] Other Sex Assigned At [facility] Start: 12-20-2022 End: 09-14-2023 Tobacco smoking status Ex-smoker (finding) [facility] Tobacco smoking status Never [facility] Functional Status Date Assessment Result Facility 09-14-2023 Functional Status N/A [facility] [place] 12-20-2022 Functional Status N/A [facility] Clinical Note 09-14-2023 Note Date & Type Note Facility 09-14-2023 Note Chief Complaint consultation for lipoma HPI Staff 38 year old male presents on consultation from Dr. Green for lipoma. Reports noting mass to left upper back several years ago. Denies increase in size since first noted. Denies discomfort. No imaging completed. History of Present Illness 38 yo male with h/o anxiety, referred for subcutaneous mass left upper back; present for several years, no pain or significant change in size, no imaging; no h/o other similar lesions; no asa or NSAID use; no tobacco use. Review of Systems PHQ Score Initial Depression Screen Score: 0 SCORE ROS - Provider Constitutional: no fever, no sweats, no weight loss. Eyes: no glasses, no blurred vision, no visual loss. ENMT: no dentures, no hoarseness, no swallowing difficulties, no hearing loss, no ear infection(s), no nose bleeds. Cardiovascular: normal blood pressure, no chest pain, regular heartbeat, no heart murmur. Respiratory: no shortness of breath, no cough, no asthma, no wheezing. Gastrointestinal: no nausea, no vomiting, no diarrhea, no constipation, no blood in stool, no change in bowel habits, no abdominal pain, no hepatitis. Genitourinary: no kidney stones, no urine infection, no dysuria. Musculoskeletal: no pain, no weakness. Skin: no changing moles, no rash, yes skin lumps. Neurologic: no seizures, no epilepsy, no headache. Psychiatric: no emotional or psychiatric problem. Heme/Lymph: no bleeding problems, no anemia, no blood clots, no transfusions. Allergy/Immunologic: no swollen lymph nodes/glands, no IV drug abuse. Other: Additional ROS info: Except as noted in the above Review of Systems and in the History of Present Illness, all other systems have been reviewed and are negative or noncontributory. Physical Exam Vitals & Measurements HR: 108(Peripheral) RR: 16 BP: 144/96 HT: 72 in HT: 182 cm WT: 94.9 kg WT: 208.78 lb BMI: 28.65 HEENT: normal conjunctiva, sclera clear, no scleral icterus, EOM intact, PERRLA, oral mucosa moist without lesions. Neck: trachea midline, no mass, symmetric, no thyromegaly or nodules, no adenopathy Musculoskeletal: normal gait, digits and nails without infection, nodes, cyanosis, clubbing. Skin: no rashes, no lesions,no ulcers, right upper back with soft, flat subcutaneous mass, 2.5 cm, non tender, no overlying skin changes. Psychiatric/Neuro: oriented to time, place, person, judgement normal, affect appropriate for age, insight intact, no focal deficits. Tests: labs reviewed, x-rays reviewed, review of old records completed , Discussed surgical options, risks, and possible complications with patient. Assessment/Plan 1. Subcutaneous mass of back (R22.2: Localized swelling, mass and lump, trunk) will obtain US for further evaluation, will call patient with results; call sooner if problems/questions. Ordered: US Chest or Upper Back, Limited Follow-up No qualifying data available Problem List/Past Medical History Ongoing Anxiety BMI 28.0-28.9,adult Epididymal cyst Hx of testicular mass Kidney stone Overweight Subcutaneous mass of back Testicle pain Testicular calcification Historical No qualifying data Procedure/Surgical History Tonsillectomy. Medications hydrOXYzine hydrochloride 25 mg Tab, 25 mg= 1 tab(s), Oral, q8hr Lexapro 10 mg Tab, 15 mg= 1.5 tab(s), Oral, Daily loratadine 10 mg Tab, 10 mg= 1 tab(s), Oral, Daily Allergies No Known Allergies Social History Alcohol - Low Risk, 03/05/2020 Substance Abuse - Denies Substance Abuse, 09/14/2023 Tobacco Former smoker, quit more than 30 days ago Tobacco Use:. Former smokeless tobacco user, quit more than 30 days ago Smokeless Tobacco Use:. Cigarettes, Oral, 0.25 per day. Started age 18.0 Years. Stopped age 25 Years., 09/14/2023 Family History Hypertension: Father. Malignant granular cell myoblastoma: Child. Primary malignant neoplasm of lung: Mother. Immunizations Vaccine Date Status Comments influenza virus vaccine, inactivated - Not Given Patient Refuses influenza virus vaccine, inactivated 08/27/2019 Recorded measles/mumps/rubella virus vaccine 02/12/2000 Recorded [facility] Comment on above: Result Comment: Elec tronically Signed By: CAMI HART, Urban Venegas\Date and Time Signed: 09/14/23 14:09 EST Hospital Discharge instructions 12-20-2022 Note Date & Type Note Facility 12-20-2022 Hospital Discharg e instructions Patient Education 12/20/2022 13:42:31 Testicular Self-Exam Testicular Self-Exam A self-examination of your testicles (testicular self-exam) involves looking at and feeling your testicles for abnormal lumps or swelling. Several things can cause swelling, lumps, or pain in your testicles. Some of these causes are: Injuries. Inflammation. Infection. Buildup of fluids around your testicle (hydrocele). Twisted testicles (testicular torsion). Testicular cancer. Why is it important to do a testicular self-exam? Self-examination of the testicles and the left and right groin areas may be recommended if you are at risk for testicular cancer. Your groin is where your lower abdomen meets your upper thighs. You may be at risk for testicular cancer if you have: An undescended testicle (cryptorchidism). A history of previous testicular cancer. A family history of testicular cancer. How to do a testicular self-exam The testicles are easiest to examine after a warm bath or shower. They are more difficult to examine when you are cold. This is because the muscles attached to the testicles retract and pull them up higher or into the abdomen. A normal testicle is egg-shaped and feels firm. It is smooth and not tender. The spermatic cord can be felt as a firm, spaghetti-like cord at the back of your testicle. Look and feel for changes Stand and hold your penis away from your body. Look at each testicle to check for lumps or swelling. Roll each testicle between your thumb and forefinger, feeling the entire testicle. Feel for: ?Lumps. ?Swelling. ?Discomfort. Check the groin area between your abdomen and upper thighs on both sides of your body. Look and feel for any swelling or bumps that are tender. These could be enlarged lymph nodes. Contact a health care provider if: You find any bumps or lumps, such as a small, hard, pea-sized lump. You find swelling, pain, or soreness. You see or feel any other changes in your testicles. Summary A self-examination of your testicles (testicular self-exam) involves looking at and feeling your testicles for any changes. Self-examination of the testicles and the left and right groin areas may be recommended if you are at risk for testicular cancer. You should check each of your testicles for lumps, swelling, or discomfort. You should check for swelling or tender bumps in your groin area between your lower abdomen and upper thighs. This information is not intended to replace advice given to you by your health care provider. Make sure you discuss any questions you have with your health care provider. Document Released: 01/09/2002 Document Revised: 01/24/2020 Document Reviewed: 08/29/2017 [employer] Patient Education 2020 [employer]. Follow Up Care 10/14/2022 11:05:03 With:RANJIT HART, John Franco, URL Address: [facility] [address] , [place] [address]- When: Unknown [facility] Evaluation note 12-11-2021 Note Date & Type Note Facility 12-11-2021 Evaluation note Encounter Date Diagnosis Assessment Notes Nov, Wellness examination (ICD-10 - Z00.00) I did review his blood work results from June (2020) with him today. His total cholesterol was 160. HDL was 47. LDL was 98.2. Triglycerides were 74. His readings are at goal. After age 35 we will order a PSA level. Nov, Anxiety (ICD-10 - F41.9) He does continue to take Lexapro. He voices that it seemed around the holiday time that the Lexapro was not effective but he feels it was due to stress, his son had his repeat scans at that time also which is a big stress on him, this lasted for about three weeks but then the medication seemed to work again. He was more irritable and had a shorter fuse than normal but never felt sick to his stomach like he did prior to being on the Lexapro. He would like to continue with the medication. We discussed him increasing the dose but ultimately decided not to do this. Nov, Weight gain (ICD-10 - R63.5) He has gained 6.5 pounds since last seen. His TSH in Jun (2020) was normal at 1.806. He admits that now that he is feeling good he has gained more weight then he ever has. He has a gym at work and gets one hour per day to work out so he is going to begin doing this so he can work on weight loss and getting in shape. Nov, Elevated CO2 level (ICD-10 - R79.81) His CO2 level was elevated when checked in Jun (2020) at 31.6. He does not believe that he snores. We discussed that lab value normals are different at every lab. As long as he is not snoring and his has never noticed him stop breathing then we do not need to do anything further. He voices that other people he has talked to have mentioned their CO2 levels are elevated, he wonders if this is caused by wearing a mask. This is something that we can continue to monitor. 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 He does not drink alot of alcohol. Fatty liver was discussed. He has been recently taking Ibuprofen for a tooth that needs a root canal but was not doing this when the lab was drawn in Jun (2020). He should watch his intake of carbs, sugars, anything made with flour. I did recommend that he have lab repeated in six months. He voices that he went to an oral surgeon for evaluation of a spot under his tooth, his dentist told him he could not rule out cancer. He needs to have a root canal done and then the oral surgeon will re-evaluate him in four months but did not think there was anything abnormal going on. [facility] Other Evaluation + Plan note Note Date & Type Note Facility Evaluation + Plan note No data available for this section [facility] Evaluation note Note Date & Type Note Facility Evaluation note No Information [facility] Other History general Narrative - Reported Note Date & Type Note Facility History general Narrative - Reported Type Medical History anxiety Medical History heart palpitations 2 014/ was seen at [facility] and followed up with cardiology NO (Dr. Forbes) Surgical History tonsils, adnoids as a child [facility] Other Hospital Discharge instructions Note Date & Type Note Facility Hospital Discharge instructions No data available for this section [facility] [place] [employer] [facility] note Note Date & Type Note Facility [facility] note No data available for this section [facility] Summary Purpose Family History No Family History Records FoundNo Family History Records Found No data available for this section No Family History Records Found Advance Directives No Advanced Directives Records FoundNo Advanced Directives Records FoundNo Advanced Directives Records Found Additional Source Comments (unrecognized sect ion and content) No Status Records FoundNo Status Records FoundNo Status Records Found INFORMATION SOURCE (unrecogn ized section and content) DATE CREATED AUTHOR 04/06/2018 [facility] DATE CREATED AUTHOR AUTHOR'S ORGANIZ ATION 12/25/2022 [facility] DATE CREATED AUTHOR AUTHOR'S ORGANIZ ATION 10/01/[address] [facility] REASON FOR VISIT (unrecogniz ed section and content) review labsUS results Patient Care team informatio n (unrecognized section and content) Personnel Name: Triston Green DO Address: Address: [address] [place] [address], [facility] [place], [place] [address] Personnel Name: Triston Green DO Address: Address: [address] [place] [address] [place], [place] [address] FOR RECORDS PERTAINING TO PATIENTS WHO ARE OR HAVE BEEN ENROLLED IN A CHEMICAL DEPENDENCY/SUBSTANCEABUSE PROGRAM, SOME INFORMATION MAY BE OMITTED. This clinical summary was aggregated from multiple sources. Caution should be exercised in using it in the provision of clinical care. This summary normalizes information from multiple sources, and as a consequence, information in this document may materially change the coding, format and clinical context of patient data. In addition, data may be omitted in some cases. CLINICAL DECISIONS SHOULD BE BASED ON THE PRIMARY CLINICAL RECORDS. [facility]. provides no warranty or guarantee of the accuracy or completeness of information in this document.
== END 2023-08-29 00:25 | disposition home or self-care (01) ==
PROVIDERS: Emergency Provider Internal Medicine; PCP Family Medicine
DX: N13.2 Hydronephrosis with renal and ureteral calculous obstruction (principal)
CPT/HCPCS: 36415; 74176; 80048; 81001; 83605; 85025; 96374; 96375; 99285

== ENCOUNTER 2023-09-01 13:07 | Outpatient (OUT) | payer OTHER, SELFPAY ==
--- NOTE | 2023-09-01 | XR_ITS ---
The [address] [address] Patient Name: JACK PULIDO MRN: [id number] date: 1985 Sex: M Assigned Patient Location: [facility] Current Patient Location: Accession/Order Number: [id number] Exam Date: 09/01/2023 13:09 Report Date: 09/02/2023 00:37 At the request of: ADELINA OLIVEIRA Procedure: XR foot LT min 3V PROCEDURE: XR foot LT min 3V HISTORY: LEFT FOOT PAIN COMPARISON: None. FINDINGS: BONES:No fracture, acute abnormality, or significant arthropathy. SOFT TISSUES:No visible soft tissue swelling. EFFUSION:None visible. OTHER: Negative. XR/XR foot LT min 3V IMPRESSION: 1. No acute bone abnormality or significant degenerative changes. Electronically authenticated by: CINDA WEAVER Date: 09/02/2023 00:37
--- NOTE | 2023-09-01 | XR_ITS ---
The [address] [address] Patient Name: JACK PULIDO MRN: [id number] date: 1985 Sex: M Assigned Patient Location: [facility] Current Patient Location: .[facility] Accession/Order Number: [id number] Exam Date: 09/01/2023 13:09 Report Date: 09/01/2023 20:28 At the request of: ADELINA OLIVEIRA Procedure: XR ankle LT min 3V EXAM: XR ankle LT min 3V HISTORY: LEFT ANKLE PAIN COMPARISON: None. TECHNIQUE: 3 views of the right ankle were obtained. FINDINGS: There is no apparent acute fracture or dislocation. Remote bony fragmentation is seen at the tip of the medial malleolus and the at the posterior malleolus, and the mortise is intact. No osteochondral injury is identified. The subtalar joints are intact. Mild soft tissue swelling about the ankle is noted. Some cortical thickening is noted along the lateral aspect of the distal tibial metaphysis, suggesting a prior injury to the syndesmosis. XR/XR ankle LT min 3V IMPRESSION: No acute fracture or dislocation. There is evidence of prior fractures with bone fragments which appear remote. The joint spaces are intact. Mild soft tissue swelling about the ankle is noted. Comparison with a previous study would be helpful in determining the chronicity of these findings. Electronically authenticated by: NORIS CHAMBERS Date: 09/01/2023 20:28
== END 2023-09-01 13:08 | disposition home or self-care (01) ==
LOC: RAD 13:07
PROVIDERS: PCP Family Medicine; Visit Provider Physician Assistant
DX: M25.572 Pain in left ankle and joints of left foot (principal); M25.472 Effusion, left ankle
CPT/HCPCS: 73610; 73630

== ENCOUNTER 2023-09-21 13:49 | Outpatient (OUT) | payer OTHER, SELFPAY ==
--- NOTE | 2023-09-21 | US_ITS ---
The [address] [address] Patient Name: JACK PULIDO MRN: [id number] date: 1985 Sex: M Assigned Patient Location: US Current Patient Location: US Accession/Order Number: [id number] Exam Date: 09/21/2023 14:00 Report Date: 09/21/2023 14:23 At the request of: DIANA ALMANZA Procedure: US chest EXAM: US chest HISTORY: Localized swelling, mass and lump trunk, R22.2 COMPARISON: None. TECHNIQUE: Real-time back ultrasound. Findings: DJD patient's palpable abnormality within the upper back there is a 2.8 x 2.3 x 1.5 cm echogenic and heterogeneous lesion. No significant blood flow. US/US chest IMPRESSION: 1. Sonographic findings suggest a possible lipoma. If clinical findings are not consistent with a lipoma or there has been rapid increase in size or new pain in this area, recommend further characterization with MR without and with intravenous contrast. Electronically authenticated by: KEYUR AGUIRRE Date: 09/21/2023 14:23
== END 2023-09-21 13:50 | disposition home or self-care (01) ==
LOC: US 13:49
PROVIDERS: PCP Family Medicine; Visit Provider Surgery
DX: R22.2 Localized swelling, mass and lump, trunk (principal)
CPT/HCPCS: 76604

== ENCOUNTER 2025-06-03 06:49 | Outpatient (OUT) | payer OTHER, SELFPAY ==
--- OUTSIDE RECORDS SUMMARY | 2024-12-24 05:00 | XMS_ITS | Encounter Summary ---
Author Name [facility] [place] [facility] [place] Address [address] [place] [id number] Support Name Relationship Address Phone BILL PULIDO Next of Kin [address] [place] [id number] BILL PULIDO Emergency Contact [address] [place] [phone] Insurance Providers: All historical and current Section Date Range: From patient's date of to the date document was created. This section includes the names of all active insurance providers for the patient. Insurance Provider Type of Coverage Plan Name Start of Policy Coverage End of Policy Coverage Group Number Member ID Insurance Provider's Telephone Number Policy De Luna's Name Patient's Relationship to Policy De Luna [facility] [employer] ([facility]) MENTAL HEALTH AP[facility]U HRA Oct 17, 2016 [id number] [phone] JACK PULIDO PATIENT [employer] ([id number]) PRESCRIPT ION [facility] Sep 24, 2018 [id number] JACK PULIDO PATIENT [facility] PREFERRED PROVIDER ORGANIZAT ION (PPO) [facility] Sep 24, 2018 [id number] JACK PULIDO PATIENT [facility] MENTAL HEALTH [facility] Sep 24, 2018 [id number] JACK PULIDO PATIENT [facility] ([facility]) MENTAL HEALTH AP[facility]U HRA Oct 17, 2019 [id number] JACK PULIDO PATIENT [facility] [facility] ([id number])( [id number])([facility]) PRESCRIPT ION AP[facility] Oct 17, 2016 [facility] [id number] JACK PULIDO PATIENT [facility] ([facility]) HIGH DEDUCTIBL E HEALTH PLAN W/HEALTH REIMBURSE MENT ARRANGEME NT APWU HRA Oct 17, 2016 [id number] JACK PULIDO PATIENT [facility] ([facility]) HIGH DEDUCTIBL E HEALTH PLAN W/HEALTH REIMBURSE MENT ARRANGEME NT APWU Oct 17, 2016 [id number] JACK PULIDO PATIENT Selected Encounter This section includes the information on [place] at [place] for the Encounter. Date/Time Encounter Type Encounter Description Reason Provider Source Dec 24, 2024 09:00 AM PSYTX W PT 45 MINUTES [facility] INDIV ICD-10-CM F41.1 Generalized anxiety disorder PRETTY SANTOS [place] Encounter Template Text not used by [place] Assessments - Encounter Diagnoses This section includes the primary and secondary diagnoses documented for the Encounter. Date/Time Primary/Secondary Diagnosis Diagnosis Name Provider Source Dec 24, 2024 11:58 AM PRIMARY Generalized anxiety disorder PRETTY SANTOS [facility] Plan of Treatment: Future Appointments (+ 6 months) and Future Tests (+/- 45 days) The Plan of Treatment section includes future care activities for the patient from all [place] treatmentfacilities. This section includes future appointments and future orders which are active, pending or scheduled. Future Appointments This section includes appointments that were scheduled to occur 6 months from the date of the Encounter, up to a maximum of 20 appointments. The data comes from all [place] treatment facilities. Appointment Date/Time Appointment Type Appointme nt Facility Name February 18, 2025 09:00 AM AMBULATORY - PS[facility]CHI[facility]RY [facility] Social History: Smoking Status (Most current) and Tobacco Use (All prior to encounter date) This section includes the most current, and the historical, smoking and tobacco- related health factors from the [facility] where the [facility]. Current Smoking Status This section includes the most current smoking, or tobacco-related health factor, from the [place] facility where the Encounter took place. Date/Time Current Smoking Status [place] Oct 20, 2012 01:00 PM CURRENT TOBACCO USER [facility] Encounter Notes: All associated encounter notes This section contains the clinical notes associated to the Encounter. Date/Time Encounter Note(s) Provider Source Dec 24, 2024 09:00 AM MENTAL HEALTH NOTE : LOCAL TITLE: PRIMARY CARE MENTAL HEALTH INTEGRATION NOTE STANDARD TITLE: MENTAL HEALTH NOTE DATE OF NOTE: DEC 24, 2024@09:00 ENTRY DATE: DEC 24, 2024@11:46:19 AUTHOR: PRETTY SANTOS EXP COSIGNER: URGENCY: STATUS: COMPLETED PRIMARY CARE MENTAL HEALTH INTEGRATION NOTE Has ADDENDA PRIMARY CARE MENTAL HEALTH [facility] CONSULTATION NOTE Date: 12/24/24 Duration: 45 minutes Referring Provider: Call-in request for MH services Reason for Referral: Anxiety Nature of Visit: Consultation via [facility] Clinician reviewed PC-MHI and interdisciplinary team approach. Clinician explained to the senior technical writer's status as a clinical psychologist. Limits to confidentiality was explained. Akron expressed understanding and provided verbal consent for treatment. The following procedure was enacted prior to clinical content of session: * identified with two identifiers ( and last 4 of SSN) * verified location (Akron's workplace: [employer] [address], [place] [address]) * asked if they consent to telephonic therapy with risks to confidentiality * asked directly about SI/HI Video to Home Appointment: Patient has consented to receive this care via video to clinic and confirmed physical location is work address as noted above. ADDITIONAL INFORMATION: E911: For emergencies, provider may initiate the call to first aid director by calling E911 Center [phone] Crisis Hotline 988 and push 1 [employer] Help Desk ([facility]): [phone] or [phone] Identifying Information: Cindy is a 39-year-old white male initially seen for assessment/establishment of MH services at the [facility]; presenting with anxiety. Session Content: Akron reported that he continues to experience ups and downs in his anxiety over the past two months. He noted that he had been feeling increasingly anxious prior to and upon his return from a week long work trip. He was able to identify triggers related to change. He noted that he has noticed a general reduction in the frequency and intensity of anxiety episodes over the past two months. He also reported that he has been utilizing breathing exercises, mindfulness, and medication to good effect. He also noted that he recently received a service/support dog that has been helpful. Measurement-Based care: was sent PHQ-9 and KAT-7 measures to complete via [facility]. Film Producer will attach results in addendum to this note when completed by . Film Producer provided validation for 's concerns. Discussed 's ongoing use of healthy coping skills. Discussed thoughts regarding use of tools at had to cope with anxiety, including use of his medication. Akron was able to identify more helpful thoughts along this line: medication as a tool, self- awareness of potentially anxiety-provoking situations, and use of self-care to good effect. Reviewed use of Mind[facility] [employer] and [employer] Relax apps. Akron agreed to follow-up with this senior technical writer in [facility] in two months. 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 Relationships: ; lives with and three children: 7, 3, and 9 months. Strong family and community support system. Sleep: denied any issues with sleep. Substance use: Alcohol: rarely 2 drinks per month on average. Marijuana/other illicit: Denied. Nicotine: Denied. Mood: reported euthymic mood today. Activities: outdoor time with family, hunting. Mental Status: Seen for consultation via VVC session. He was cooperative throughout the interview. Mood was pleasant and affect was appropriate and congruent with mood; full range. Appearance/dress was neat and appropriate as could be determined over video. No SI/HI. Thought process was appropriate and goal- directed. Thought content was focused and appropriate. No evidence of psychosis or thought disorder was present. Risk Assessment: denied any current or past SI. He has never attempted suicide or began any prepatory actions. His family obligation, sense of responsibility to self and others, enjoying life, afraid of , self- seeking treatment: all protective factors. SUICIDE RISK/LETHALITY: Patient reports suicidal or homicidal ideations: No Patient reports suicidal or homicidal plans: No Patient reports suicidal or homicidal intentions: No Access to lethal means: keeps firearms locked in safe at home. Risk Level Impression: Low acute and chronic risk: presence of risk minimal. Plan for management of lethality concerns: Outpatient, screen SI on a routine basis Patient Provided with: Clinic and [place] crisis line phone number Appointment card and next step details Managing risks/seeking help information and literature Informed of 09/05 psych ER availability, Mental Health Walk In Clinic and 911 Intervention: Brief assessment, review of progress, CBT intervention. Diagnostic Impression: Generalized anxiety disorder Considerations: Cultural considerations included as part of 's treatment preference. identified spirituality/mendel is of primary importance. A/P: was initially seen in [facility] on consult to address reported symptoms of anxiety. Routine screening indicated mild depression and moderate anxiety symptoms. Akron noted that symptoms have persisted for over the past seven years and have been primarily related to several significant health concerns with family, including leading to of family members. He agreed to work on behavioral activation, stress reduction/relaxation skills, and cognitive- behavioral interventions. Plan is to follow-up with [facility] on 02/18/25 at 09:00 via [facility]. He was also made aware of his availability to contact this senior technical writer should he need to discuss his mental health needs prior to his next scheduled session. The was provided with this senior technical writer's contact information in addition to [facility]. He expressed appropriate use of both. /dorothy/ PRETTY SANTOS CLINICAL PSYCHOLOGIST Signed: 12/24/2024 15:26 12/24/2024 ADDENDUM STATUS: COMPLETED Assessments were sent to the via text/email. These assessments were completed by JACK PULIDO on their own device on 12/25/2024 6:38:34 AM. PATIENT HEALTH QUESTIONNAIRE-9 (PHQ-9) The patient reported some symptoms of depression; symptoms are not consistent with a major depressive episode. Patient reported being bothered by the following over the last 2 weeks: 1. Little interest or pleasure: Not at all 2. Feeling down, depressed or hopeless: Not at all 3. Trouble sleeping: Not at all 4. Tired, low energy: Several Days 5. Poor appetite, over-eating: Not at all 6. Feelings of failure, guilt: Several Days 7. Trouble concentrating: Not at all 8. Motor retardation, agitation: Not at all 9. Thoughts better off /hurting self: Not at all PHQ-9 total score = 2 1-4 = minimal symptoms 5-9= mild symptoms 10-14= moderate symptoms 15-19= moderately severe symptoms 20-27= severe depressive symptoms The patient stated that the depressive symptoms made it somewhat difficult to work, take care of things at home, or get along with others. PHQ-9 Total Score (past 180 days): 12/25/2024 2 09/04/2024 2 07/31/2024 1 GENERAL ANXIETY DISORDER-7 (KAT-7) Patient reported being bothered by the following over the last two weeks: 1. Feeling nervous, anxious or on edge: More than half the days 2. Not being able to stop or control worrying: More than half the days 3. Worrying too much about different things: Several days 4. Trouble relaxing: Several days 5. Feeling restless (hard to sit still): Not at all 6. Becoming easily annoyed or irritable: More than half the days 7. Afraid as if something awful might happen: Several days KTA-7 total score = 9 0-4=minimal symptoms 5-9=mild symptoms 10-14=moderate symptoms 15-21=severe symptoms The patient stated that the anxiety symptoms made it very difficult to work, take care of things at home, or get along with others. KAT-7 Total Score (past 180 days): 12/25/2024 9 09/04/2024 8 07/31/2024 8 /es/ PRETTY SANTOS CLINICAL PSYCHOLOGIST Signed: 12/25/2024 13:27 PRETTY SANTOS [facility]
--- OUTSIDE RECORDS SUMMARY | 2025-06-03 06:54 | XMS_ITS | CCD ---
Author Organization [facility] CliniSypr Care Team Providers Care Powder Hand Name Role Phone HOWIE ALEJANDRO Unavailable Unavailable Triston Green Unavailable Triston Green Primary Care Physician PETER, DR GOLDSTEIN Admitting Unavailable GIRVIN, DR [...] Unavailable CHIU ., DR GARCIA Attending Unavailable GIRCAMMY, DR GOLDSTEIN Primary Care Unavailable GIRVIN, DR GOLDSTEIN Consulting Unavailable ZIEBER, DR CINDA Franco Consulting Unavailable CHIU ., DR GARCIA Admitting Unavailable CHIU ., DR GARCIA Attending Unavailable GIRVIN, DR GOLDSTEIN Primary Care Unavailable CHUI ., DR GARCIA Consulting Unavailable ZIEBER, DR CINDA Franco Consulting Unavailable John CHIU Attending Unavailable Triston Green Referring Unavailable Urban ALMANZA Attending Unavailable DO Triston Green Primary Care Provider DO Anam Ramírez Attending Provider Triston Green Primary Care Unavailable Darrell, Anam Lopez Attending Mable arteagale Anam Ramírez Admitting Unavai lable Medications Current Medications Medication Drug Class(es) Dates Sig (Normalized) Sig (Original) hydrOXYzine hydrochloride 25 mg oral tablet (2 sources) Antihistamine Start: 01-18-2024 Hydroxyzine Hcl 25 mg tablet Active 25 MG PO as needed January 18, 2024 12:00am FreeTextSi tablet Orally q8-12 hrs prn anxiety; Note: Source Status: Taking; Refills: 1; Provider: Peter Bustillos Start: 08-31-2023 take 1 tablet by aristides th every eight hours hydrOXYzine hydrochloride 25 mg Tab 25 mg = 1 tab(s), Oral, q8hr, Refills(s) 0 Start Date: 08/31/23 Status: Ordered loratadine 10 mg oral tablet (5 sources) Start: 01-18-2024 End: 01-18-2024 take 1 tablet by mouth once daily Loratadine 10 mg tablet Active 10 MG PO Daily January 18, 2024 10:06am FreeTextSi tablet Orally Once a day; Note: Source Status: Not-TakingundefinedPRNprn; Provider: Peter Goldstein ( ) Start: 09-14-2023 take 1 tablet by aristides th once daily loratadine 10 mg Tab 10 mg = 1 tab(s), Oral, Daily, Refills(s) 0 Start Date: 09/14/23 Status: Ordered take 1 tablet by aristides th every twenty-four hours Loratadine 10 MG 1 tablet Orally Once a day prn Active Multivitamin preparation (1 source) Multivitamin Act nicky Multivitamin tablet (1 source) Start: 01-18-2024 take 1 tablet by mouth once daily Multivitamin tablet Active 1 TAB PO Daily January 18, 2024 12:00am psyllium 3400 mg powder for oral suspension (4 sources) Start: 01-18-2024 End: 02-28-2024 Psyllium Husk (Metamucil) 3.4 gram/5.4 gram powder Active 1 TBSP PO Daily as needed February 28, 2024 11:17am mix into at least 8 oz of water or juice before administering Metamucil prn No t-Taking Metamucil Not-Ta thecole (3 sources) Start: 05-30-2024 Theanine 200 m g capsule Active 200 MG PO As Directed as needed May 30, 2024 12:52pm Start: 01-18-2024 End: 05-30-2024 Theanine 200 mg capsule Disc ontinued 200 MG PO As Directed January 18, 2024 10:07am May 30, 2024 12:53pm FreeTextSig: as directed Orally; Note: Source Status: Takingprn; Provider: Peter Goldstein ( ) Start: 01-18-2024 End: 01-18-2024 Theanine 200 mg capsule Disc ontinued CAP PO As Directed January 18, 2024 12:00am January 18, 2024 10:07am FreeTextSig: as directed Orally; Note: Source Status: Takingprn; Provider: Peter Goldstein ( ) 24 hr venlafaxine 75 mg extended release oral capsule (9 sources) Serotonin and Norepinephrine Reuptake Inhibitor Start: 02-25-2025 End: 02-25-2025 take 1 capsule by mouth once daily Venlafaxine 75 mg capsule,extended release 24hr Active 75 MG PO Daily February 25, 2025 12:06pm Start: 09-24-2024 End: 02-25-2025 take 1 capsule by mouth once daily Venlafaxine 75 mg capsule,extended release 24hr Discontinued 0 .ROUTE .COMPLEX September 24, 2024 12:20pm February 25, 2025 11:54am TAKE 1 CAPSULE BY MOUTH EVERY DAY Start: 05-30-2024 End: 09-24-2024 take 1 capsule by mouth once daily Venlafaxine 75 mg capsule,extended release 24hr Discontinued 75 MG PO Daily May 30, 2024 12:57pm September 24, 2024 12:20pm Start: 03-20-2024 End: 05-30-2024 take 1 capsule by mouth once daily Venlafaxine 75 mg capsule,extended release 24hr Discontinued 0 .ROUTE .COMPLEX March 20, 2024 10:23am May 30, 2024 12:57pm TAKE 1 CAPSULE BY MOUTH EVERY DAY Start: 02-24-2024 End: 03-20-2024 take 1 capsule by mouth once daily Venlafaxine (Effexor Xr) 75 mg capsule,extended release 24hr Discontinued 75 MG PO Daily February 24, 2024 9:22am March 20, 2024 10:24am Start: 02-09-2024 End: 02-24-2024 take 1 capsule by mouth once daily Venlafaxine 37.5 mg capsule,extended release 24hr Discontinued 0 .ROUTE .COMPLEX February 09, 2024 12:51pm February 24, 2024 8:24am TAKE 1 CAPSULE BY MOUTH DAILY Start: 01-18-2024 End: 02-09-2024 take 1 capsule by mouth once daily Venlafaxine (Effexor Xr) 37.5 mg capsule,extended release 24hr Discontinued 37.5 MG PO Daily January 18, 2024 12:00am February 09, 2024 12:52pm Completed/Discontinued Medications Medication Drug Class(es) Dates Sig (Normalized) Sig (Original) escitalopram 10 mg oral tablet (6 sources) Serotonin Reuptake Inhibitor Start: 01-18-2024 End: 01-18-2024 take 1 tablet by mouth once daily Escitalopram Oxalate 10 mg tablet Discontinued 10 MG PO Daily January 18, 2024 10:06am January 18, 2024 10:27am FreeTextSi tablet by mouth qd; Note: Source Status: Decrease; Provider: Morgan Sinha Start: 11-14-2020 Lexapro 10 mg Tab 15 mg = 1.5 tab(s), Oral, Daily Start Date: 11/14/20 Status: Ordered Start: 10-21-2020 take 1 mg by mouth once daily Lexapro 10 mg Tab mg tab(s), Oral, Daily Start Date: 11/14/20 Status: Ordered famotidine 10 mg oral tablet (2 sources) Histamine-2 Receptor Antagonist Start: 10-21-2020 Pepcid AC 10 MG 1 tablet Orally as directed prn Oct, Not-Taking Problems Active Problems Problem Classification Problem Date Documented Da te Episodic/Chronic Anxiety disorders (7 sources) Anxiety; Translations: [Anxiety disorder, unspecified] Onset: 12-11-2021 Resolved: 12-11-2021 Chronic Calculus of urinary tract (7 sources) Kidney stone; Translations: [Calculus of kidney] Onset: 12-20-2022 Episodic Cardiac dysrhythmias (1 source) Palpitations; Translations: [Palpitations] Onset: 01-06-2024 Episodic Disorders of lipid metabolism (5 sources) Dyslipidemia; Translations: [Hyperlipidemia, unspecified] Onset: 12-11-2021 Resolved: 12-11-2021 Chronic Esophageal disorders (3 sources) Acid reflux; Translations: [Gastro-esophageal reflux disease without esophagitis] 02-28-2024 Chronic Malaise and fatigue (1 source) Fatigue; Translations: [Other fatigue] 05-30-2024 Episodic Nausea and vomiting (1 source) Nausea with vomiting, unspecified; Translations: [Nausea with vomiting, unspecified] Onset: 01-25-2018 Episodic Other gastrointestinal disorders (1 source) 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; Translations: [Malabsorption due to intolerance, not elsewhere classified] 02-25-2025 Chronic Other gastrointestinal disorders (1 source) Malabsorption due to intolerance, not elsewhere classified; Translations: [Other specified intestinal malabsorption] 02-25-2025 Chronic Other gastrointestinal disorders (1 source) Diarrhea, unspecified; [...] te Episodic/Chronic Other aftercare (5 sources) Other senior living (current) drug therapy; Translations: [OTH [employer] T[employer]ER CURRENT DRUG THERAPY] Onset: 12-11-2021 Resolved: 12-11-2021 [...] Results Test Name Value Interpretation Reference Range Facility ECG 12 lead ECGon 01-06-2024 ECG 12 lead ECG [facility] [place] [address] Electrocardiograph Report Signed Patient: Kingsley Durant MR#: [id number] 1 : 1985 Acct:[id number] Age/Sex: 38 / M ADM Date: 01/06/24 Loc: EL Room: Type: [facility] Attending Dr: Anam Ramírez DO Ordering Provider: Anam Ramírez DO Date of Service: 01/06/24/ ECG/ECG 12 lead ECG: palpitations Copies to: Test Reason : Blood Pressure : / mmHG Vent. Rate : 081 BPM Atrial Rate : 081 BPM P-R Int : 132 ms QRS Dur : 094 ms QT Int : 358 ms P-R-T Axes : 039 069 045 degrees QTc Int : 415 ms Normal sinus rhythm Normal ECG No previous ECGs available Confirmed by Alexandru Rosa ([id number]) on 01/06/2024 2:29:10 PM Referred By: Electronically Signed By:Alexandru Rosa Transcribed By: MUS Signed By Alexandru Rosa MD 01/06/24 1429 Normal [facility] echo transthoracicon ECH echo transthoracic [facility] Main [address] [address] Echocardiogram Signed Patient: Kingsley Durant MR#: [id number] 1 : 1985 Acct:[id number] Age/Sex: 38 / M ADM Date: 01/06/24 Loc: Room: Type: [facility] Attending Dr: Anam Raímrez DO Ordering Provider: Anam Ramírez DO Date of Service: 01/06/24/ [facility] transthoracic: Palpitations. Copies to: MD Anam Mccall DO Weight: 200 lb Performed By: Dayana Doshi RDCS BSA: 2.1 m2 BP: 112/70 mmHg HR: 84 Reason For Study: Palpitations. History: Palpitations. Interpretation Summary Ejection Fraction = 60-65%. A variety of Doppler measurements indicate normal left ventricular diastolic function. The left ventricular wall motion is normal. The left ventricular size and thickness are normal. There is trace tricuspid regurgitation. There is no comparison study available. Procedure/Quality: A two-dimensional transthoracic echocardiogram with color flow and Doppler was performed. The study was technically good in quality. Left Ventricle: The left ventricular size and thickness are normal. Ejection Fraction = 60-65%. A variety of Doppler measurements indicate normal left ventricular diastolic function. The left ventricular wall motion is normal. Left Atrium: The left atrium appears normal in size. Right Atrium: The right atrium appears normal in size. Right Ventricle: The right ventricle is normal in size and function. Aortic Valve: The aortic valve is trileaflet. The aortic valve is normal in structure. No hemodynamically significant valvular aortic stenosis. No aortic regurgitation is present. Mitral Valve: The mitral valve is normal in structure. No significant mitral valve stenosis. There is no mitral regurgitation noted. Tricuspid Valve: The tricuspid valve is normal in structure. There is trace tricuspid regurgitation. Pulmonic Valve: The pulmonic valve is not well visualized. No significant pulmonic regurgitation. Arteries: The aortic root is normal size. Pericardium/Pleura: No pericardial effusion seen. There is no pleural effusion. IVC/Hepatic Veins: The inferior vena cava is normal in size, with a normal collapsibility index. Measurements with Normals IVSd: 0.72 cm (0.7-1.1 cm)LVIDd: 4.7 cm (3.7-5.4 cm) LVPWd: 0.83 cm (0.7-1.1 cm)LVIDs: 3.1 cm (2.3-3.6 cm) LA dimension: 4.3 cm (2.3-4.0 cm)Ao root diam: 3.1 cm(2.0-3.6 cm) asc Aorta Diam: 3.3 cm(2.1-3.4cm) Doppler with Normals RVSP(TR): 26.1 mmHg (18-35mmHg) LV V1 max: 135.1 cm/sec (0.7-1.7m/s)MV E max khris: 68.9 cm/sec(0.8-1.3m/s) MV A max khris: 62.6 cm/sec(0.0-0.0m/s) MV E/A: 1.1 (<1.5) MMode/2D Measurements Calculations RVDd: 3.9 cm FS: 35.3 % Ao root area: LVOT diam: 2.0 cm TAPSE: 3.0 cm EDV(Teich): 7.7 cm2 LVOT area: 3.2 cm2 RV S Khris: 104.7 ml 15.0 cm/sec ESV(Teich): 37.1 ml EF(Teich): 64.6 % __ LVLd ap4: 8.6 cm SV(MOD-sp4): LAV(MOD-sp4): LA A2 area: 13.8 cm2 EDV(MOD-sp4): 54.1 ml 26.2 ml 86.2 ml LAV(MOD-sp2): LA A4 area: 13.4 cm2 LVLs ap4: 7.0 cm 30.2 ml LA length (vol): ESV(MOD-sp4): 5.3 cm 32.1 ml LA vol: 29.8 ml EF(MOD-sp4): 62.8 % LA vol index: 14.0 ml/m2 Doppler Measurements Calculations MV dec time: E/E' lat: 4.7 MV dec slope: Ao V2 max: 0.21 sec E/E' med: 6.5 133.8 cm/sec 330.2 cm/sec2 Ao max P.2 mmHg Ao mean P.8 mmHg Ao V2 mean: 105.7 cm/sec Ao V2 VTI: 24.6 cm AGATHA(I,D): 3.2 cm2 AGATHA(V,D): 3.2 cm2 __ LV V1 max PG: TV max PG: TR max khris: 7.3 mmHg 23.0 mmHg 240.3 cm/sec LV V1 mean PG: TR max P.1 mmHg 4.2 mmHg RAP systole: 3.0 mmHg LV V1 mean: 95.9 cm/sec LV V1 VTI: 24.8 cm Transcribed By: CHARMAINE Performed At: 01/06/24 0946 Signed By: Alexandru Rosa MD 01/06/24 1340 Normal [facility] RAD - Ultrasound Reporton RAD - Ultrasound Report [id number] IFF Normal [facility] Ambulatory Visit Summaryon 1 11-14-2022 Ambulatory Visit Summary KINGSLEY DURANT :1985 Visit Date:09/14/2023 Ambulatory Visit Instructions Your Diagnosis [...] for choosing us for your care. Normal [facility] Physician Referralon 023 Physician Referral [id number]#[id number] IFF Normal [facility] RAD - MISCon 12-23-2022 RAD - MISC [id number]#1.00C D:127 Normal [facility] XR KUB 1 VIEWon 12-21-2022 XR [...] by: CINDA WEAVER Date: 2022-12-21 11:40 Normal [facility] Ambulatory Visit Summaryon 0 12-20-2022 Ambulatory Visit Summary TESS KINGSLEY Franco :1985 Visit Date:12/20/2022 Ambulatory Visit Instructions Your Diagnosis Testicular calcification Kidney stone Epididymal cyst Tests Performed Urnls Dip Stick Auto w/o Microscopy POC 85649 XR Abdomen 1 View -- Results Pending -- Please visit your patient portal for your results or contact your primary care physician. Your Care Team Attending Physician - APPLE HART, John Franco Primary Care Physician - Triston Green DO [...] Schedule the Following Appointments Follow Up with APPLE HART, SHALA Espinal When: Where: [facility] [address] [place] [address]- Medications What How Much When Instructions Unchanged escitalopram (Lexapro 10 mg Tab) Every day Contact prescribing physician if questions or concerns Test Results Urnls Dip Stick Auto w/o Microscopy POC 60128 (12/20/2022) Bilirubin Urine Dipstick - Negative Blood Urine Dipstick - Negative Glucose Urine Dipstick - Negative Ketones Urine Dipstick - Negative Leukocytes Urine Dipstick - Negative Nitrite Urine Dipstick - Negative Protein Urine Dipstick - Negative Specific [place] Urine Dipstick - 1.025 Urine Appearance Urine [...] 01/09/2002 Document Revised: 01/24/2020 Document Reviewed: 08/29/2017 [employer] Patient Education ? 2019 [employer]. Normal [facility] Patient Educationon 12-21-19 Patient Education Urology [...] 01/09/2002 Document Revised: 01/24/2020 Document Reviewed: 08/29/2017 [employer] Patient Education ? 2019 [employer]appli. [facility] Reminderson 12-20-2022 Reminders - From: Duyen Jones To: EU - Recalls [employer]; Sent: 12/20/2022 14:14:18 EST Show up: 09/16/2025 14:14:00 EST Subject: scrotal US and F/u in 2025 Due Date/Time: 10/07/2025 14:14:00 EST Reminder/Recall Pt is due in December 2025 for 3 year fu with scrotal US Normal [facility] Urology Office/Clinic Noteon 12-20-2022 Urology Office/Clinic [...] testicular exams Follow-up With When Contact Information APPLE HART, John Franco, URL [facility] [address], [place] [address]- Additional Instructions: KUB now Patient Education Testicular [...] 12:59:00) Protein (more content not included)... Normal [facility] Comment on above: Result Comment: Elec tronically Signed By: John CHIU MD\.br\Date and Time Signed: 12/20/22 14:07 EST\.br\Electronically Co-Signed By: Darlene Dueñas.br\Date and Time Co-Signed: 12/20/22 14:05 EST RAD - Ultrasound Reporton RAD - Ultrasound Report [id number] D:127 Normal [facility] US SCROTUMon 10-28-2022 US SCROTUM EXAMINATION: [...] by: CINDA WEAVER Date: 2022-10-28 15:47 Normal [facility] Physician Orderon 10-14-2022 Physician Order [id number]#[id number] D:127 Normal [facility] US SINGLE QUAD RT UPPERon US [...] CINDA WEAVER Date: 2022-07-15 08:39 Normal [facility] CBC AUTO DIFFon 07-01-2022 BASO # 0.0 103/ul Normal 0.0-0.1 [facility] Comment on above: Performed By: #### C BC #### [facility] [address] [address] [address] Patti Goncalves Basophils/100 WBC (Bld) 0.5 % Normal 0.2-2.0 [facility] Comment on above: Performed By: #### C BC #### [facility] [address] [address] [address] Patti Goncalves EO # 0.2 103/ul Normal 0.0-0.7 [facility] Comment on above: Performed By: #### C BC #### [facility] [address] [address] [address] Patti Goncalves Eosinophils/100 WBC (Bld) 3.2 % Normal 0.9-7.0 [facility] Comment on above: Performed By: #### C BC #### [facility] [address] [address] [address] Patti Goncalves Erythrocyte distribution width (RBC) [Ratio] 12.6 % Normal 11.0-15.0 [facility] Comment on above: Performed By: #### C BC #### [facility] [address] [address] [address] Patti Goncalves Hematocrit (Bld) [Volume fraction] 47.1 % Normal 42.0-54.0 [facility] Comment on above: Performed By: #### C BC #### [facility] [address] [address] [address] Patti Goncalves Hemoglobin (Bld) [Mass/Vol] 16.2 g/dL Normal 14.0-18.0 [facility] Comment on above: Performed By: #### C BC #### [facility] [address] [address] [address] Patti Goncalves IG # 0.02 10e3/ul Normal 0.00-0.03 [facility] Comment on above: Performed By: #### C BC #### [facility] [address] [place] [address] Dr. Patti Goncalves IG % 0.3 % Normal 0.0-0.5 [facility] Comment on above: Performed By: #### C BC #### [facility] [address] [place] [address] Dr. Patti Goncalves LYMPH # 1.9 103/ul Normal 1.2-3.8 [facility] Comment on above: Performed By: #### C BC #### [facility] [address] [place] [address] Dr. Patti Goncalves Lymphocytes/100 WBC (Bld) 24.5 % Normal 20.5-60.0 [facility] Comment on above: Performed By: #### C BC #### [facility] [address] [place] [address] Dr. Patti Goncalves MANUAL DIFF REQ NO Normal [facility] Comment on above: Performed By: #### C BC #### [facility] [address] [place] [address] Dr. Patti Goncalves MCH (RBC) [Entitic mass] 31.4 pg Normal 25.9-34.0 [facility] Comment on above: Performed By: #### C BC #### [facility] [address] [place] [address] Dr. Patti Goncalves MCHC (RBC) [Mass/Vol] 34.4 g/dL Normal 29.9-35.2 [facility] Comment on above: Performed By: #### C BC #### [facility] [address] [place] [address] Dr. Patti Goncalves MCV (RBC) [Entitic vol] 91.3 fL Normal 80.0-94.0 [facility] Comment on above: Performed By: #### C BC #### [facility] [address] [place] [address] Dr. Patti Goncalves MONO # 1.1 103/ul Critically high 0.3-0.8 [facility] Comment on above: Performed By: #### C BC #### [facility] [address] [address] [address] Patti Goncalves Monocytes/100 WBC (Bld) 14.2 % Critically high 1.7-12.0 [facility] Comment on above: Performed By: #### C BC #### [facility] [address] [address] [address] Patti Goncalves NEUT # 4.4 103/ul Normal 1.4-6.5 [facility] Comment on above: Performed By: #### C BC #### [facility] [address] [address] [address] Patti Goncalves Neutrophils/100 WBC (Bld) 57.3 % Normal 43.0-75.0 [facility] Comment on above: Performed By: #### C BC #### [facility] [address] [place] [address] Dr. Patti Goncalves Platelet mean volume (Bld) [Entitic vol] 8.9 fL Critically low 9.5-13.5 [facility] Comment on above: Performed By: #### C BC #### [facility] [address] [address] [address] Patti Goncalves PLT 272 103/ul Normal 150-450 [facility] Comment on above: Performed By: #### C BC #### [facility] [address] [place] [address] Dr. Patti Goncalves RBC 5.16 106/ul Normal 4.70-6.10 [facility] Comment on above: Performed By: #### C BC #### [facility] [address] [place] [address] Dr. Patti Goncalves WBC 7.6 103/ul Normal 4.0-11.0 [facility] Comment on above: Performed By: #### C BC #### [facility] [address] [place] [address] Dr. Patti Goncalves LIPID PROFILEon 07-01-2022 CHOL-HDL RATIO NORM SEE BELOW Normal [facility] Comment on above: Result Comment: 3.3 - 4.4 LOW RISK 4.4 - 7.1 AVERAGE RISK 7.1 - 11.0 MODERATE RISK >11.0 HIGH RISK Performed By: #### L IPID, CMP #### [facility] [address] [place] [address] Dr. Patti Goncalves Cholesterol [Mass/Vol] 149 mg/dL Normal <=200 [facility] Comment on above: Performed By: #### L IPID, CMP #### [facility] [address] [place] [address] Dr. Patti Goncalves Cholesterol in HDL [Mass/Vol] 47 mg/dL Normal 40-60 [facility] Comment on above: Performed By: #### L IPID, CMP #### [facility] [address] [place] [address] Dr. Patti Goncalves Cholesterol in LDL [Mass/Vol] 89.6 mg/dL Normal [facility] Comment on above: Performed By: #### L IPID, CMP #### [facility] [address] [place] [address] Dr. Patti Goncalves Cholesterol.total/Ch olesterol in HDL [Mass ratio] 3.2 {ratio} Normal [facility] Comment on above: Performed By: #### L IPID, CMP #### [facility] [address] [place] [address] Dr. Patti Goncalves HDL NORMAL > or = 60 mg/dl - LO W CARDIOVASCULAR RISK <40 mg/dl - HIGH CARDIOVASCULAR RISK Normal [facility] Comment on above: Performed By: #### L IPID, CMP #### [facility] [address] [place] [address] Dr. Patti Goncalves LDL CALC NORMAL SEE BELOW Normal [facility] Comment on above: Result Comment: <100 mg/dl OPTIMAL 100 - 129 mg/dl NEAR OR ABOVE OPTIMAL 130 - 159 mg/dl BORDERLINE HIGH 160 - 189 mg/dl HIGH >190 mg/dl VERY HIGH Performed By: #### L IPID, CMP #### [facility] [address] [place] [address] Dr. Patti Goncalves Triglyceride [Mass/Vol] 62 mg/dL Normal <=150 [facility] Comment on above: Performed By: #### L IPID, CMP #### [facility] [address] [address] [address] Patti Goncalves VLDL CALC 12.4 mg/dL Normal [facility] Comment on above: Performed By: #### L IPID, CMP #### [facility] [address] [address] [address] Patti Goncalves PROF 14(COMP METB)on 022 Albumin [Mass/Vol] 4.4 g/dL Normal 3.4-5.0 [facility] Comment on above: Performed By: #### L IPID, CMP #### [facility] [address] [address] [address] Patti Goncalves Albumin/Globulin [Mass ratio] 1.5 {ratio} Normal [facility] Comment on above: Performed By: #### L IPID, CMP #### [facility] [address] [address] [address] Patti Goncalves ALP [Catalytic activity/Vol] 62 U/L Normal 46-116 [facility] Comment on above: Performed By: #### L IPID, CMP #### [facility] [address] [address] [address] Patti Goncalves ALT [Catalytic activity/Vol] 65 U/L Critically high 16-63 [facility] Comment on above: Performed By: #### L IPID, CMP #### [facility] [address] [address] [address] Patti Goncalves Anion gap [Moles/Vol] 9.8 mmol/L Normal [facility] Comment on above: Performed By: #### L IPID, CMP #### [facility] [address] [address] [address] Patti Goncalves AST [Catalytic activity/Vol] 20 U/L Normal 15-37 [facility] Comment on above: Performed By: #### L IPID, CMP #### [facility] [address] [address] [address] Patti Goncalves Bilirubin [Mass/Vol] 1.0 mg/dL Normal 0.2-1.0 [facility] Comment on above: Performed By: #### L IPID, CMP #### [facility] [address] [address] Dr. Patti Goncalves Calcium [Mass/Vol] 9.0 mg/dL Normal 8.5-10.1 [facility] Comment on above: Performed By: #### L IPID, CMP #### [facility] [address] [address] [address] Patti Goncalves Chloride [Moles/Vol] 101 mmol/L Normal 98-107 [facility] Comment on above: Performed By: #### L IPID, CMP #### [facility] [address] [address] [address] Patti Goncalves CO2 [Moles/Vol] 29.1 mmol/L Normal 21.0-32.0 [facility] Comment on above: Performed By: #### L IPID, CMP #### [facility] [address] [place] [address] Dr. Patti Goncalves Creatinine [Mass/Vol] 0.86 mg/dL Normal 0.70-1.30 [facility] Comment on above: Performed By: #### L IPID, CMP #### [facility] [address] [place] [address] Dr. Patti Goncalves EGFR-AF BRITISH >60 Normal >=60 [facility] Comment on above: Performed By: #### L IPID, CMP #### [facility] [address] [address] [address] Patti Goncalves EGFR-NON AF BRITISH >60 Normal >=60 [facility] Comment on above: Performed By: #### L IPID, CMP #### [facility] [address] [place] [address] Dr. Patti Goncalves Globulin (S) [Mass/Vol] 3.0 g/dL Normal [facility] Comment on above: Performed By: #### L IPID, CMP #### [facility] [address] [place] [address] Dr. Patti Goncalves Glucose [Mass/Vol] 93 mg/dL Normal 74-106 [facility] Comment on above: Performed By: #### L IPID, CMP #### [facility] [address] [address] [address] Patti Goncalves Potassium [Moles/Vol] 3.9 mmol/L Normal 3.5-5.1 [facility] Comment on above: Performed By: #### L IPID, CMP #### [facility] [address] [place] [address] Dr. Patti Goncalves Protein [Mass/Vol] 7.4 g/dL Normal 6.4-8.2 [facility] Comment on above: Performed By: #### L IPID, CMP #### [facility] [address] [address] [address] Patti Goncalves Sodium [Moles/Vol] 136 mmol/L Normal 136-145 [facility] Comment on above: Performed By: #### L IPID, CMP #### [facility] [address] [place] [address] Dr. Patti Goncalves Urea nitrogen [Mass/Vol] 10.0 mg/dL Normal 7.0-18.0 [facility] Comment on above: Performed By: #### L IPID, CMP #### [facility] [address] [place] [address] Dr. Patti Goncalves Urea nitrogen/Creatinine [Mass ratio] 11.6 mg/mg Normal [facility] Comment on above: Performed By: #### L IPID, CMP #### [facility] [address] [place] [address] Dr. Patti Goncalves Basic Metabolic Panlon 01-25 Anion gap 18 mmol/L Normal 9-18 [facility] Comment on above: Performed By: #### B MP, MG1 ####[facility] [address] [place], [place] [phone] Calcium 10.6 mg/dL High 8.5-10.2 [facility] Comment on above: Performed By: #### B MP, MG1 ####[facility] [address] [place], [place] [phone] Chloride 99 mmol/L Normal 97-105 [facility] Comment on above: Performed By: #### B MP, MG1 ####[facility] [address] [place], [place] [phone] CO2 24 mmol/L Normal 22-30 [facility] Comment on above: Performed By: #### B MP, MG1 ####[facility] [place], [place] [phone] Creatinine 1.09 mg/dL Normal 0.73-1.22 [facility] Comment on above: Performed By: #### B MP, MG1 ####[facility] [place], [place] [phone] eGFR (non-black) mL/min/{1.73_m2} Normal [facility] [place] Comment on above: Result Comment: eGFR (Estimated [...] GFR. Performed By: #### B SIMONE, MG1 ####[facility] [address] [place], [place] [phone] Glucose mass conc 110 mg/dL High 74-99 [facility] Comment on above: Result Comment: The [place] Diabetes Association (ADA) provides guidance for cutoff [...] Standards of Medical Care in Diabetes 2016, [place] [employer] Association. Diabetes Care. 2016.39(Suppl 1). Performed By: #### B MP, MG1 ####[facility] [address] [place], [place] [phone] Potassium molar conc 4.0 mmol/L Normal 3.7-5.[address] [facility] Comment on above: Performed By: #### B MP, MG1 ####[facility] [address] [place], [place] [phone] Sodium 141 mmol/L Normal 136-144 [facility] Comment on above: Performed By: #### B MP, MG1 ####[facility] [address] [place], [place] [phone] Urea nitrogen 18 mg/dL Normal 9-24 [facility] Comment on above: Performed By: #### B SIMONE, MG1 ####[facility] [place], [place] [phone] ED NOTEon 01-25-2018 ED NOTE HNO ID: [id number] Author: GALLO Marte (Ct) Service: Emergency Medicine Author Type: Boarder Hand Type: ED Notes Filed: 01/25/2018 6:02 AM Note Text: Updating Pt Vs Normal [facility] ED NOTE HNO ID: [id number] Author: GALLO Marte (Ct) Service: Emergency Medicine Author Type: Boarder Hand Type: ED Notes Filed: 01/25/2018 1:27 AM Note Text: Took Pt vs Normal [facility] ED PROV NOTEon 01-25-2018 ED PROV NOTE HNO ID: [id number]: EITAN Shearerervice: 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 Negative for ear pain, sinus pressure andsore throat.Eyes: Negative for photophobia, redness and visual disturbance.Respiratory : Positive for cough. Negative for shortness of breath andwheezing.Cardiovascu lar: Negative for chest pain, palpitations and leg swelling.Gastrointestin al: Positive for diarrhea, nausea and vomiting. Negative forabdominal pain.Endocrine: Negative for polydipsia, polyphagia and polyuria.Genitourinary: Negative for dysuria, flank pain, frequency and urgency.Musculoskeletal : Negative for back pain, myalgias, neck pain [...] appearswell-developed and well-nourished. No distress.HENT:Head: Normocephalic and atraumatic.Mouth/Throat : Uvula is midline, oropharynx is clear and [...] is no rebound, no guarding and no CVAtenderness.Musculosk eletal: Normal range of motion. He exhibits no edema ortenderness.Neurologic al: He is alert and oriented to person, [...] and B were negative. Magnesium within limits. BMPunremarkable.Procedu resMedical Decision Making / ED CourseED CourseThe patient [...] R11.22. Diarrhea, unspecified type R19.73. Flu-like symptoms R68.79Evkn1. Discharge home2. Take Phenergan as needed3. Follow-up with primary care provider as needed4. Return to the emergency Department with any change or worsening ofsymptomsCondition at time of disposition: stableSIGNATURE: Jessika Pedroza APRN.CNPSamanyris ([facility]) Kqrjsa94/11/18 1007Attending NoteI have personally performed a face to face assessment of the patient andhave reviewed the PA/BUS CLEANER note. My mai findings include:History is as above, 2 y/o son and are seriously ill causing a greatdeal of stress. Additionally, the son is flu positive.Exam: as above, much improved after ivf and medsAssessment/Plan: Dehydration, nausea, follow-up PCPSignature: ALEXX Shearerate: 01/25/2018Time: 4:16 Deann Alejandro MD01/25/18 1618 Normal [facility] Magnesiumon 01-25-2018 Magnesium 2.3 mg/dL Normal 1.7-2.3 [facility] Comment on above: Performed By: #### B MP, MG1 ####[facility] [address] [place], [place] [phone] Vital Signs Date Time Vital Sign Value Performing Clinician Facility 02-25-2025 11:35-0400 Body height 179.71 cm [facility] 02-25-2025 11:35-0400 Body mass index (BMI) [Ratio] 29 kg/m2 [facility] 02-25-2025 11:35-0400 Body temperature 98.7 [degF] [facility] 02-25-2025 11:35-0400 Body weight 93.89 kg [facility] 02-25-2025 11:35-0400 Diastolic blood pressure 86 mm[Hg] [facility] 02-25-2025 11:35-0400 Heart rate 117 /min [facility] 02-25-2025 11:35-0400 SaO2% (BldA) [Mass fraction] 99 % [facility] 02-25-2025 11:35-0400 Systolic blood pressure 132 mm[Hg] [facility] 10-25-2023 12:40-0500 Body height 179.71 cm Triston Green Work Phone: [facility] 09-14-2023 13:17-0500 Blood Pressure Location Urban ALMANZA [facility] [place] 09-14-2023 13:17-0500 Diastolic blood pressure 96 mm[Hg] Urban ALMANZA [facility] 09-14-2023 13:17-0500 Heart rate 108 /min Urban ALMANZA [facility] 09-14-2023 13:17-0500 Respiratory rate 16 /min Urban ALMANZA [facility] 09-14-2023 13:17-0500 Systolic blood pressure 144 mm[Hg] Urban ALMANZA [facility] [place] 12-20-2022 13:07-0500 Diastolic blood pressure 108 mm[Hg] John CHIU [facility] 12-20-2022 13:07-0500 Mean blood pressure 126 mm[Hg] John CHIU [facility] 12-20-2022 13:07-0500 Systolic blood pressure 161 mm[Hg] John CHIU [facility] 12-20-2022 13:01-0500 Blood Pressure Location John CHIU [facility] 12-20-2022 13:01-0500 Diastolic blood pressure 112 mm[Hg] John CHIU [facility] 12-20-2022 13:01-0500 Heart rate 120 /min John CHIU [facility] 12-20-2022 13:01-0500 Respiratory rate 16 /min John CHIU [facility] 12-20-2022 13:01-0500 Systolic blood pressure 167 mm[Hg] John CHIU [facility] 12-11-2021 09:10-0500 Body height 179.71 cm Triston Green Other [facility] Other 12-11-2021 09:10-0500 Body mass index (BMI) [Ratio] 28.93 kg/m2 Triston Green Other [facility] Other 12-11-2021 09:10-0500 Body temperature 97.1 [degF] Triston Green Other [facility] Other 12-11-2021 09:10-0500 Body weight 93.44 kg Triston Green Other [facility] Other 12-11-2021 09:10-0500 Diastolic blood pressure 82 mm[Hg] Triston Green Other [facility] Other 12-11-2021 09:10-0500 Respiratory rate 18 /min Triston Green Other [facility] Other 12-11-2021 09:10-0500 SaO2% (BldA) [Mass fraction] 98 % Triston Green Other [facility] Other 12-11-2021 09:10-0500 Systolic blood pressure 124 mm[Hg] Triston Green Other [facility] Other Encounters Encounter Date Encounter Type Care Provider Facility Start: 02-25-2025 End: 02-25-2025 ambulatory [facility] Work Phone: Start: 02-25-2025 End: 02-25-2025 Patient encounter procedure [facility] Physician [facility] [place] Work Phone: Start: 01-06-2024 End: 01-06-2024 ambulatory Triston Green Facility:[facility] Start: 01-06-2024 End: 01-06-2024 ambulatory DO Triston Green Work Phone: [facility] Work Phone: Start: 01-06-2024 End: 01-06-2024 Patient encounter procedure DO Triston Green Work Phone: [facility] Work Phone: Start: 10-25-2023 End: 10-25-2023 Patient encounter procedure DO Triston Green Work Phone: [facility] Physician [facility] [place] Work Phone: Start: 09-14-2023 End: 09-15-2023 ambulatory Triston Green Facility: [facility] Start: 09-14-2023 End: 09-14-2023 Patient encounter procedure Urban ALMANZA [facility] Start: 08-18-2023 ambulatory John CHIU Facility : [facility] Start: 12-20-2022 End: 12-21-[address] JOHN CHIU . Facility: Start: 12-20-2022 End: 12-21-2022 ambulatory John CHIU Facility:[facility] Start: 12-20-2022 End: 12-20-2022 Patient encounter procedure John CHIU [facility] Start: 10-28-2022 End: 10-29-[address] JOHN CHIU . Facility:[facility] Start: 07-23-2022 End: 07-23-2022 ambulatory Triston Green Other [facility] Other Start: 07-23-2022 Telephone encounter Triston Green [facility] Start: 07-15-2022 End: 07-16-[address] TRISTON GREEN Facility:[facility] Start: 07-01-2022 End: 07-02-[address] TRISTON GREEN Facility:[facility] Start: 12-11-2021 End: 12-11-2021 ambulatory Triston Green Other [facility] Other Start: 12-11-2021 Encounter for genera l adult medical examination without abnormal findings Triston Green [facility] Start: 12-11-2021 Periodic preventive med est patient 18-39 yrs Triston Green [facility] Start: 01-25-2018 End: 01-25-2018 Emergency department patient visit HOWIE ALEJANDRO [facility] [place] Procedures Date Procedure Procedure Detail Performing Clinician Tonsillectomy John CHIU Immunizations Immunization Date Immunization Notes Care Provider Fa cility 08-27-2019 influenza virus vaccine, unspecified formulation John CHIU [facility] 08-27-2019 Influenza, injectabl e, Madin Dana Canine Kidney, preservative free, quadrivalent [facility] 02-12-2000 measles, mumps and rubella virus vaccine John CHIU [facility] NEGATED: Highlighted row has not occurred!09-14-2023 influenza virus vaccine, unspecified formulation Urban TORY [facility] [place] Payers Date Payer Category Payer Unknown [id number] 2020 Private Health Insurance [id number] 1987 Unknown [id number] 1987 Unknown [id number] 1987 Unknown [id number] 1987 Unknown [id number] 1987 Unknown [id number] 1987 Unknown [id number] 1987 Unknown [id number] 1959 Private Health Insurance [id number] 1959 Self-pay Private Health Insurance [facility] [id number] Unknown [id number] Social History Date Type Detail Facility Unknown if ever smoked [facility] Other Sex Assigned At [facility] Start: 12-20-2022 End: 02-28-2024 Tobacco smoking status Ex-smoker (finding) [facility] Tobacco smoking status Never [facility] Start: 1985 Sex Assigned At Male [facility] Start: 02-25-2025 Sex Male (finding) [facility] Functional Status Date Assessment Result Facility 09-14-2023 Functional Status N/A [facility] [place] 12-20-2022 Functional Status N/A [facility] Clinical Note 09-14-2023 Note Date & Type [...] 08/27/2019 Recorded measles/mumps/rubella virus vaccine 02/12/2000 Recorded [facility] Comment on above: Result Comment: Elec tronically Signed By: TORY HART, Urban Venegas\Date and Time Signed: 09/14/23 [...] 01/09/2002 Document Revised: 01/24/2020 Document Reviewed: 08/29/2017 [employer] Patient Education 2019 [employer] Follow Up Care 10/14/2022 11:05:03 With:APPLE HART, John Franco, URL Address: [facility] [address] , [place] [address]- When: Unknown [facility] Evaluation note 12-11-2021 Note Date & Type [...] we can continue to monitor. 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 [facility] Other Evaluation + Plan note Note Date & Type Note Facility Evaluation + Plan note No data available for this section [facility] Evaluation [facility] Note Date & Type Note Facility Evaluation note No Information [facility] Other Evaluation note Note Date & Type Note Facility Evaluation note No assessment information availa ble [facility] Work Phone: Evaluation note Note Date & Type Note Facility Evaluation note Diagnosis Onset Date Resolution Anxiety acute February 25, 2025 11:41am Dairy product intolerance acute February 25, 2025 11:41am [facility] Work Phone: History general Narrative - Reported Note Date & Type Note Facility History general Narrative - Reported Type Medical History anxiety Medical History heart palpitations 2 014/ was seen at [facility] and followed up with cardiology [facility] (Dr. Forbes) Surgical History tonsils, adnoids as a child [facility] Other Hospital Discharge instructions Note Date & Type Note Facility Hospital Discharge instructions No data available for this section [facility] [place] note Note Date & Type Note Facility Progress note No data available for this section [facility] Summary Purpose Family History Relationship Condition Age at Onset Recorded Date/T santos father Hypertension Unknown grandparent Unknown Chronic obstructive pulmonary disease Unk nown grandparent Family history of mental disorder Unknown Unknown Not Specified Unknown Malignant neoplasm Unknown Relationship Condition Age at Onset Recorded Date/T santos father Hypertension Unknown grandparent Unknown Chronic obstructive pulmonary disease Unk nown grandparent Family history of mental disorder Unknown Unknown mother Unknown Malignant neoplasm Unknown Advance Directives Advance Directive Response Recorded Date/ Time Advance Directives No January 03 8:41am Advance Directive Response Recorded Date/ Time Advance Directives No January 17 10:26am Chief Complaint and Reason for Visit Chief Complaint Discuss Lexapro/Alte rnatives r00.2 Chief Complaint Admit Date 9 mo recheck anxiety February 25, 2025 11:4 1am Reason for Visit Admit Date Anxiety February 25, 2025 11:41 am Dairy product intolerance February 25, 2025 11:41am Additional Source Comments (unrecognized sect ion and content) No Status Records FoundNo Status Records FoundNo Status Records FoundNo Status Records Found INFORMATION SOURCE (unrecogn ized section and content) DATE CREATED AUTHOR 04/06/2018 [facility] DATE CREATED AUTHOR AUTHOR'S ORGANIZ ATION 12/25/2022 [facility] DATE CREATED AUTHOR AUTHOR'S ORGANIZ ATION 10/01/2023 Tadeo Monona [facility] DATE CREATED AUTHOR AUTHOR'S ORGANIZ ATION 02/29/2024 [facility] REASON FOR VISIT (unrecogniz ed section and content) review labsUS results Patient Care team informatio n (unrecognized section and content) Team Status: Active Member Role Status Dates Triston Green DO Primary Care Provider Active Team Status: Inactive Member Role Status Dates Triston Green DO Attending Provider Active Star t: October 25, 2023 End: October 25, 2023 Team Status: Inactive Member Role Status Dates Triston Green DO Primary Care Provider Active S tart: January 06, 2024 End: January 06, 2024 Anam Ramírez DO Attending Provider Activ e Start: January 06, 2024 End: January 06, 2024 Team Status: Inactive Member Role Status Dates Triston Green DO Primary Care Provide r, Attending Provider Active Start: February 25, 2025 End: February 25, 2025 Goals (unrecognized section and content) Goals may be documented in a n alternate section FOR RECORDS PERTAINING TO PATIENTS WHO ARE [...] BE BASED ON THE PRIMARY CLINICAL RECORDS. [facility]. provides no warranty or guarantee of the accuracy or completeness of information in this document.
--- OUTSIDE RECORDS SUMMARY | 2025-06-03 06:54 | XMS_ITS | Continuity of Care Document ---
Author Name [facility] Organization [facility] Care Team Providers Care Immigration Judge Name Role Phone [facility] Unavailable Unavailable Problems Combined list of problems from Department of Defense and [facility] facilities. It does not include entries that were removed or entered in error. 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 07/11/2018 Condition [facility] Need For Prophylactic Antibiotics Inactive 09/02/2006 Condition [facility] Patient Education - Injury Prevention Inactive 08/12/2006 Condition [facility] Personal history of deployment Active Condition [facility] Adjustment disorder, unspecified Active Condition [facility] Adjustment disorder with mixed anxiety and depressed mood Active Condition [facility] Unspecified internal derangement of knee (ICD-9-CM 717.9) Active Condition [facility] visit for: ears / hearing exam Active Condition [facility] Diagnosis: ICD-10-CM F41.1 Generalized anxiety disorder Active Diagnosis [facility] Medications Combined list of outpatient medications from Department of Defense and [facility] facilities.Medications provided include 1) outpatient medications from the last 15 months, and 2) patient-reported medications. Medication Details Route Status Patient Instructions Prescription Expires Prescription Number Last Dispense Date Ordering Provider Order Date Order Qty Source HYDROXYZINE PAMOATE 25MG CAP TAKE 1 CAPSULE BY MOUTH DAILY PRN ORAL VIVIANE MOE 2019 [facility] LORATADINE 10MG TAB TAKE ONE TABLET BY MOUTH EVERY DAY NEEDED ORAL VIVIANE MOE 2019 [facility] OMEPRAZOLE 20MG CAP,EC TAKE 1 CAPSULE BY MOUTH EVERY MORNING, ON AN EMPTY STOMACH ORAL VIVIANE MOE 2019 [facility] Immunizations Combined list of available immunizations from the Department of Defense and Veterans [facility] facilities. Immunization Series Date Given Administered By Site Reaction Lot Number CVX Code Drug Loans Officer Status Comments Source Influenza, injectable, quadrivalent, preservative free 0 2021 [id number] [facility] (SKB) complet ed Influenza , injectabl e, quadrival ent, preservat nicky free DoD COVID Vaccine Pfizer 2020 [id number] PFIZER complet ed COVID Vaccine [facility] 08/22/21 Given Ambulat ory Pharmac y SARS-COV-2 (COVID-19) vaccine, mRNA, spike protein, LNP, preservative free, 30 mcg/0.3mL dose 2 2020 [id number] Pfizer, Inc (PFR) complet ed SARS-COV- 2 (COVID-19 ) vaccine, mRNA, spike protein, LNP, preservat nicky free, 30 mcg/0.3mL dose DoD COVID Vaccine Pfizer 2020 [id number] 208 PFIZER complet ed COVID Vaccine [facility] 08/01/21 Given Ambulat ory Pharmac y SARS-COV-2 (COVID-19) vaccine, mRNA, spike protein, LNP, preservative free, 30 mcg/0.3mL dose 1 2020 [id number] 208 Pfizer, Inc (PFR) complet ed SARS-COV- 2 (COVID-19 ) vaccine, mRNA, spike protein, LNP, preservat nicky free, 30 mcg/0.3mL dose DoD influenza, injectable, quadrivalent 2020 [id number] 158 [facility] complet ed influenza , injectabl e, quadrival ent 07/12/21 Given Ambulat ory Pharmac y influenza, injectable, quadrivalent, contains preservative 1 2020 [id number] 158 [facility] influenza , injectabl e, quadrival ent, contains preservat nicky DoD influenza, injectable, quadrivalent 2019 [id number] 158 Se[employer] complet ed influenza , injectabl e, quadrival ent 08/02/20 Given Ambulat ory Pharmac y influenza, injectable, quadrivalent, contains preservative 1 2019 [id number] 158 Se[employer] (SEQ) complet ed influenza , injectabl e, quadrival ent, contains preservat nicky DoD influenza virus vaccine, unspecified 2018 [id number] 88 [employer] complet ed influenza virus vaccine, unspecifi ed 08/27/19 Given Ambulat ory Pharmac y INFLUENZA, INJECTABLE, MDCK, PRESERVATIVE FREE, QUADRIVALENT 1 2018 171 complet ed HISTORICA L INFORMATI ON - FROM OTHER REGISTRY, TYREE HEATHER [facility] influenza virus vaccine, unspecified formulation 1 2018 [id number] 88 Se[employer] (SEQ) comple t ed influenza virus vaccine, unspecifi ed formulati on DoD influenza, injectable, quadrivalent- pf 2017 [id number] 150 Se[employer] complet ed influenza , injectabl e, quadrival ent-pf 07/29/18 Given Ambulat ory Pharmac y Influenza, injectable, quadrivalent, preservative free 1 2017 [id number] 150 Se[employer] (SEQ) comple t ed Influenza , injectabl e, quadrival ent, preservat nicky free DoD Influenza, inj, MDCK, quadrivalent- pf 2016 [id number] 171 Se[employer] complet ed Influenza , inj, MDCK, quadrival ent-pf 07/02/17 Given Ambulat ory Pharmac y Influenza, injectable, Madin Hawkeye Canine Kidney, preservative free, quadrivalent 2016 [id number] 171 Seqirus (SEQ) comple t ed Influenza , injectabl e, Madin Hawkeye Canine Kidney, preservat nicky free, quadrival ent DoD influenza, seasonal, injectable-pf 2015 [id number] 140 GlaxoSmithKli ne complet ed influenza , seasonal, injectabl e-pf 06/26/16 Given Ambulat ory Pharmac y Influenza, seasonal, injectable, preservative free 1 2015 [id number] 140 SmithKline (SKB) complet ed Influenza , seasonal, injectabl e, preservat nicky free DoD influenza, seasonal, injectable-pf 2014 [id number] 140 CSL Behring complet ed influenza , seasonal, injectabl e-pf 07/03/15 Given Ambulat ory Pharmac y Influenza, seasonal, injectable, preservative free 1 2014 [id number] 140 CSL Biotherapies, Inc. (CSL) complet ed Influenza , seasonal, injectabl e, preservat nicky free DoD typhoid Vi capsular polysaccharid e vac 2014 [id number] 101 sanofi pasteur complet ed typhoid Vi capsular polysacch aride vac 06/09/15 Given Ambulat ory Pharmac y typhoid Vi capsular polysaccharid e vaccine 2 2014 [id number] 101 Sanofi Pasteur (PMC) complet ed typhoid Vi capsular polysacch aride vaccine DoD Influenza, injectable, MDCK-pf 2013 [id number] 153 Novartis Pharmaceutica complet ed Influenza , injectabl e, MDCK-pf 07/20/14 Given Ambulat ory Pharmac y Influenza, injectable, Madin [place] Canine Kidney, preservative free 1 2013 [id number] 153 Novartis Armetheontica l Kimberly. (NOV) complet ed Influenza , injectabl e, Madin [place] Canine Kidney, preservat nicky free DoD influenza, live, intranasal,qu adrivalent 2012 [id number] 149 Medimmune Inc comple t ed influenza , live, intranasa l,quadriv alent 08/19/13 Given Ambulat ory Pharmac y influenza, live, intranasal, quadrivalent 1 2012 [id number] 149 MedImmune, Inc. (MED) complet ed influenza , live, intranasa l, quadrival ent DoD tetanus, diphtheria, acellular pertu is 2011 [id number] 115 sanofi pasteur complet ed tetanus, diphtheri a, acellular pertussis 08/19/12 Given Ambulat ory Pharmac y tetanus toxoid, reduced diphtheria toxoid, and acellular pertu is vaccine, adsorbed 1 2011 [id number] 115 Sanofi Pasteur (PMC) complet ed tetanus toxoid, reduced diphtheri a toxoid, and acellular pertussis vaccine, adsorbed DoD influenza virus vaccine, live 2011 [id number] 111 Medimmune Inc comple t ed influenza virus vaccine, live 08/18/12 Given Ambulat ory Pharmac y influenza virus vaccine, live, attenuated, for intranasal use 1 2011 [id number] 111 MedImmune, Inc. (MED) complet ed influenza virus vaccine, live, attenuate d, for intranasa l use [facility] INFLUENZA (HISTORICAL) [address] ALINE CLEMENTS [place] [facility] influenza, seasonal, injectable 2010 [id number] 141 CSL Behring complet ed influenza , seasonal, injectabl e 07/02/11 Given Ambulat ory Pharmac y influenza, seasonal, injectable-pf 2010 [id number] 140 CSL Behring complet ed influenza , seasonal, injectabl e-pf 07/02/11 Given Ambulat ory Pharmac y Influenza, seasonal, injectable, preservative free 0 2010 [id number] 140 [facility] [employer] Networks[employer]ies, Inc. (CSL) complet ed Influenza , seasonal, injectabl e, preservat nicky free DoD Influenza, seasonal, injectable 1 2010 [id number] 141 [facility] YorderapSaludFÁCIL, Inc. (CS) complet ed Influenza , seasonal, injectabl e DoD influenza virus vaccine,split 2009 [id number] 15 sanofi pasteur complet ed influenza virus vaccine,s plit 06/29/10 Given Ambulat ory Pharmac y influenza virus vaccine, split virus (incl. purified surface antigen)-reti red CODE 5 2009 [id number] 15 Sanofi Pasteur (PMC) complet ed influenza virus vaccine, split virus (incl. purified surface antigen)- retired CODE DoD anthrax vaccine 2009 [id number] 24 Emergent Biosolutions complet ed anthrax vaccine 05/16/10 Given Ambulat ory Pharmac y anthrax vaccine 3 2009 [id number] [employer] [place] ([facility]) complet ed anthrax vaccine DoD anthrax vaccine 2009 [id number] 24 Emergent Biosolutions complet ed anthrax vaccine 12/11/09 Given Ambulat ory Pharmac y anthrax vaccine 2 2009 [id number] [employer] [place] ([facility]) complet ed anthrax vaccine DoD vaccinia (smallpox) vaccine 2009 [id number] 75 Triviala complet ed vaccinia (smallpox ) vaccine 11/08/09 Given Ambulat ory Pharmac y Novel influenza-H1N 1-09, injectable 2009 [id number] [id number] 127 Novartis Pharmaceutica complet ed Novel influenza -S1Y2-97, injectabl e 11/08/09 Given Ambulat ory Pharmac y typhoid Vi capsular polysaccharid e vac 2009 [id number] 101 sanofi pasteur complet ed typhoid Vi capsular polysacch aride vac 11/08/09 Given Ambulat ory Pharmac y anthrax vaccine 2009 [id number] 24 Emergent Biosolutions complet ed anthrax vaccine 11/08/09 Given Ambulat ory Pharmac y anthrax vaccine 1 2009 [id number] 24 [employer] [place] ([facility]) complet ed anthrax vaccine DoD vaccinia (smallpox) vaccine 1 2009 [id number] 75 [place] ([facility]) complet ed vaccinia (smallpox ) vaccine DoD typhoid Vi capsular polysaccharid e vaccine 1 2009 [id number] 101 Sanofi Pasteur (PMC) complet ed typhoid Vi capsular polysacch aride vaccine DoD Novel influenza-H1N 1-09, injectable 1 2009 [id number] 1A 127 Space[employer]. (NOV) complet ed Novel influenza -C3E0-41, injectabl e DoD influenza virus vaccine, live 2008 [id number] 111 Flynnune Inc comple t ed influenza virus vaccine, live 07/19/09 Given Ambulat ory Pharmac y influenza virus vaccine, live, attenuated, for intranasal use 1 2008 [id number] 111 Directworksune, Inc. (MED) complet ed influenza virus vaccine, live, attenuate d, for intranasa l use DoD influenza virus vaccine, live 2007 [id number] 111 MediComputimeune Inc comple t ed influenza virus vaccine, live 08/17/08 Given Ambulat ory Pharmac y influenza virus vaccine, live, attenuated, for intranasal use 1 2007 [id number] 111 MedIComputimeune, Inc. (MED) complet ed influenza virus vaccine, live, attenuate d, for intranasa l use DoD influenza virus vaccine, live 2007 111 MediComputimeune Inc comple t ed influenza virus vaccine, live 10/21/07 Given Ambulat ory Pharmac y influenza virus vaccine, live, attenuated, for intranasal use 1 2007 111 MedIComputimeune, Inc. (MED) complet ed influenza virus vaccine, live, attenuate d, for intranasa l use DoD hepatitis A-hepatitis B vaccine 2006 [id number] 0AA 104 GlaxoSmithKli ne complet ed hepatitis A-hepatit is B vaccine 07/29/07 Given Ambulat ory Pharmac y hepatitis A and hepatitis B vaccine 3 2006 [id number] 0AA 104 SmithKline (SKB) complet ed hepatitis A and hepatitis B vaccine DoD influenza virus vaccine,split 2005 [id number] 15 sanofi pasteur complet ed influenza virus vaccine,s plit 08/25/06 Given Ambulat ory Pharmac y influenza virus vaccine, split virus (incl. purified surface antigen)-reti red CODE 1 2005 [id number] 15 Sanofi Pasteur (PMC) complet ed influenza virus vaccine, split virus (incl. purified surface antigen)- retired CODE DoD hepatitis A-hepatitis B vaccine 2005 [id number] 1AA 104 GlaxoSmithKli ne complet ed hepatitis A-hepatit is B vaccine 07/30/06 Given Ambulat ory Pharmac y hepatitis A and hepatitis B vaccine 2 2005 [id number] 1AA 104 SmithKline (SKB) complet ed hepatitis A and hepatitis B vaccine DoD hepatitis A-hepatitis B vaccine 2005 [id number] 1AA 104 GlaxoSmithKli ne complet ed hepatitis A-hepatit is B vaccine 06/29/06 Given Ambulat ory Pharmac y measles, mumps and rubella virus vaccine 1 2005 03 () Not Given measles, mumps and rubella virus vaccine DoD varicella virus vaccine 1 2005 21 () Not Given varicella virus vaccine DoD hepatitis A and hepatitis B vaccine 1 2005 [id number] 1AA 104 SmithKline (SKB) complet ed hepatitis A and hepatitis B vaccine DoD tuberculin purified protein derivative 2005 [id number] 96 sanofi pasteur complet ed tuberculi n purified protein derivativ e 06/23/06 Given Ambulat ory Pharmac y meningococcal polysaccharid e (MPSV4) 2005 [id number] 32 sanofi pasteur complet ed meningoco ccal polysacch aride (MPSV4) 06/23/06 Given Ambulat ory Pharmac y poliovirus vaccine, inactivated 2005 [id number] 10 sanofi pasteur complet ed polioviru s vaccine, inactivat ed 06/23/06 Given Ambulat ory Pharmac y tetanus-dipht h toxoids (Td) adult/adol 2005 [id number] 09 sanofi pasteur complet ed tetanus-d iphth toxoids (Td) adult/ado l 06/23/06 Given Ambulat ory Pharmac y tetanus and diphtheria toxoids, adsorbed, preservative free, for adult use (2 Lf of tetanus toxoid and 2 Lf of diphtheria toxoid) 1 2005 [id number] 09 Sanofi Pasteur (PMC) complet ed tetanus and diphtheri a toxoids, adsorbed, preservat nicky free, for adult use (2 Lf of tetanus toxoid and 2 Lf of diphtheri a toxoid) DoD poliovirus vaccine, inactivated 1 2005 [id number] 10 Sanofi Pasteur (PMC) complet ed polioviru s vaccine, inactivat ed DoD meningococcal polysaccharid e vaccine (MPSV4) 1 2005 [id number] 32 Sanofi Pasteur (PMC) complet ed meningoco ccal polysacch aride vaccine (MPSV4) DoD MMR 1 1999 03 complet ed HISTORICA L INFORMATI ON - FROM OTHER REGISTRY, TYREE ROMERO [facility] Results Combined list of recent chemistry, hematology and other laboratory results from Department of Defense and Veterans Affairs, ranging from 15 months to all on record, depending upon the facility. Order Name Results Value Reference Range Date Interpretation Specimen Comments Source Infectiou s Disease HIV-1/O/2 Non-Reac tive 1 (12/17/23 3:39 PM) 12/16 N Interpretiv e Data: INTERPRETAT ION: This method is a screening procedure for the detection of HIV p24 Antigen and Antibodies to HIV-1, including Group O, and/or HIV-2. NON-REACTIV E: HIV-1 antigen and HIV-1 / HIV-2 antibodies were not detected. No laboratory evidence of HIV infection. A negative test result does not exclude the possibility of exposure to or infection with HIV. HIV antibodies and/or p24 antigen may be undetectabl e in some stages of the infection and in some clinical conditions. If acute HIV infection is suspected, consider submitting another specimen to a reference laboratory for HIV-1 RNA. SCREEN REACTIVE - CONFIRMATIO N TO FOLLOW: Possible presence of HIV-1antibo dies, HIV-2 antibodies and/or HIV-1 p24 antigen. Specimen will reflex to the confirmatio n testing that fulfills the Center for Disease Control and Prevention' s HIV diagnostic algorithm. Refer to [facility] Lab Guide for additional information : [email or web address]/ [email or web address] x Testing performed by [employer] wanda garcia. [address] [employer] [facility] Sendouts Repository Sample Received (12/17/23 3:39 PM) 12/16 N [address] [facility] Encounters Combined list of: 1) Encounters from Department of Veterans Affairs facilities going backup to the last 18 months, not all VA inpatient encounters are included; 2) Encounters from the Department of Defense facilities going backup to 280 months. Location Location Details Encounter Type Encounter Number Reason For Visit Attending Provider ADM Date DC Date Status Disposition Source [place] Hearing Conserv[place] Exam) OUTPATIENT [id number] AF BRIEFIN G JUL 22 [facility] BERNIE BURGOS William 08/12 Released w/o Limitations [place]Am[place] guillen) OUTPATIENT [id number] prevent nicky/ant ibiotic s pen-v k 250mg bid 28 days [place] 09/02 Released w/o Limitations [place], [place] [address](AFN G [address] Med Sq-FM) OUTPATIENT [id number] Notes Entered by: ARIELLA CHAPA 11 Jul 2018 1716 ------- ------- ------- ------- -- MARTHA Polo 07/11 [facility]ased w/o Limitations [facility] [place] [address](A FNG 179 Med Sq[facility]FM) [place] [address](AFN G 179 Med Sq-FM) OUTPATIENT [id number] Notes Entered by: ROSY ZAMORANO AM 04 Aug 2018 0843 ------- ------- ------- ------- -- F/U ANXIETY JESSY MARIANO 08/04 [facility] Limitations [facility] [place] [address](A FNG 179 Med Sq-FM) [place] [id number](AFN G 179 Med Sq-FM) OUTPATIENT [id number] JESSY MARIANO 11/26 Released w/o Limitations [facility] [place] [address](A FNG 179 Med Sq-FM) [place] [address](AFN G 179 Med Sq-FM) OUTPATIENT [id number] Notes Entered by: GARCÍACeline SHAREE 23 Dec 2018 1133 ------- ------- ------- ------- -- Follow- up 469 JESSY MARIANO 12/23 Released w/o Limitations [facility] [place] [address](A FNG 179 Med Sq-FM) [place] [address](AFN G 179 Med Sq-FM) OUTPATIENT [id number] Notes Entered by: PANFILO ORTIZ 17 Jul 2019 1101 ------- ------- ------- ------- -- ONEIL SUTTON 07/17 Released w/o Limitations [facility] [place] [address](A FNG 179 Med Sq-FM) [place] [address](AFN G 179 Med Sq-FM) OUTPATIENT [id number] Notes Entered by: PANFILO ORTIZ 26 Jun 2020 1133 ------- ------- ------- ------- -- ONEIL SUTTON 06/26 Released w/o Limitations [facility] [place] [address](A FNG 179 Med Sq-FM) [place] [address](AFN G 179 Med Sq-FM) OUTPATIENT [id number] Notes Entered by: PETE WASHINGTON 02 Aug 2020 1346 ------- ------- ------- ------- -- Anxiety PETE WASHINGTON 08/02 Released w/o Limitations [facility] [place] [address](A FNG 179 Med Sq-FM) [place] [address](AFN G 179 Med Sq-FM) OUTPATIENT [id number] Notes Entered by: PETE WASHINGTON 06 Dec 2020 0909 ------- ------- ------- ------- -- f/u meds PETE WASHINGTON 12/06 Released w/o Limitations [facility] [place] [address](A FNG 179 Med Sq-FM) [place] [address](AFN G 179 Med Sq-FM) OUTPATIENT [id number] Notes Entered by: PETE WASHINGTON 11 Aug 2021 0915 ------- ------- ------- ------- -- PHAQ PETE WASHINGTON 08/11 Released w/o Limitations [facility] [place] [address](A FNG 179 Med Sq-FM) [place] [address](AFN G 179 Med Sq-FM) OUTPATIENT [id number] Notes Entered by: ARABELLA BLACK 25 Sep 20221100 ------- ------- ------- ------- -- PHAQ Review ARABELLA BLACK 09/25 Released w/o Limitations [facility] [place] [address](A FNG 179 Med Sq-FM) [facility] PSYTX W PT 45 MINUTES 38167-7.54 [id number] Diagnos is: ICD-10- CM F41.1 General ized anxiety disorde MIKE Jennings 12/18 [facility] W PT 45 MINUTES 56270-1.54 [id number] Diagnos is: ICD-10- CM F41.1 General ized anxiety disorde r MIKE SANTOS KEYUR 01/08 [facility] PSYTX W PT 30 MINUTES 14247-7.54 [id number] Diagnos is: ICD-10- CM F41.1 General ized anxiety disorde r MIKE SANTOS KEYUR 02/05 [facility] PSYTX W PT 45 MINUTES 25406-6.54 [id number] Diagnos is: ICD-10- CM F41.1 General ized anxiety disorde r MIKE SANTOS KEYUR 03/05 [facility] PSYTX W PT 30 MINUTES 72924-8.54 [id number] Diagnos is: ICD-10- CM F41.1 General ized anxiety disorde r MIKE SANTOS KEYUR 04/02 [facility] PSYTX W PT 30 MINUTES 42319-5.54 [id number] Diagnos is: ICD-10- CM F41.1 General ized anxiety disorde r MIKE SANTOS KEYUR 05/14 [facility] PSYTX W PT 30 MINUTES 69268-8.54 [id number] Diagnos is: ICD-10- CM F41.1 General ized anxiety disorde r MIKE SANTOS KEYUR 06/11 [facility] PSYTX W PT 30 MINUTES 90449-0.54 [id number] Diagnos is: ICD-10- CM F41.1 General ized anxiety disorde r MIKE SANTOS KEYUR 07/31 [facility] PSYTX W PT 30 MINUTES 21102-6.54 [id number] Diagnos is: ICD-10- CM F41.1 General ized anxiety disorde r MIKE SANTOS KEYUR 09/03 [facility] [id number] [facility] [id number] GIRISH MIKE 09/22 Discharge Disposition: Home or Self Care [id number] [facility] Outpatient Encounter [id number] [id number] 10/02 TYREE HEATHER [facility] PSY[facility] W PT 30 MINUTES 84763-7.54 [id number] Diagnos is: ICD-10- CM F41.1 General ized anxiety disorde r MIKE SANTOS 10/23 [facility] PSYTX W PT 45 MINUTES 68358-0.54 [id number] Diagnos is: ICD-10- CM F41.1 General ized anxiety disorde r MIKE SANTOS 12/24 [facility] PSYTX W PT 45 MINUTES 94015-8.54 [id number] Diagnos is: ICD-10- CM F41.1 General ized anxiety disorde r MIKE SANTOS 02/18 [facility] Procedures Combined list of: 1) Procedures from Department of Veterans Affairs facilities going back up to thelast 18 months, not all [place] non-surgical procedures are included; 2) All procedures from the Department of Defense facilities. Procedure Procedure Type Code Date Perfomer Comments Sourc e No data available for this section [facility] Pharmacy INFLUENZA VIRUS VACCINE, TRIVALENT (IIV3), SPLIT VIRUS, 0.5 ML DOSAGE, FOR INTRAMUSCULAR USE 6 DoD SUPP &MATERIAL (EXCEPT SPECTACLE),PROVID,T HE PHYS/OTH QUALIFIED HEALTH LATHE WINDER OVER &ABOVE THOSE USUALLY INCLD W THE OFFICE VISIT/OTH SER RENDERED (LIST DRUG,TRAYS,SUPP,OR MATERIAL PROVID) 6 DoD AZITHROMYCIN DIHYDRATE, ORAL, CAPSULES/POWDER, 1 GRAM 6 DoD FITTING OF SPECTACLES, EXCEPT FOR APHAKIA; MONOFOCAL 6 DoD Ear mold/insert, not disposable, any type [address]Supervised Services Provision Of Special Supplies -Supervised Services Provision Of Special Supplies [id number]Supervised Group Educational Services 6 BERNIE BURGOS Social History Combined list of available smoking, tobacco, and other social history from Department of Defense and Veterans Affairs facilities. Social History Type Response Date Comment Sourc e Tobacco smoking status NHIS CURRENT TOBACCO USER 3 [facility] This section is an empty soc ial history section. DoD Assessment and Plan Combined list of future care activities from Department of Defense and Veterans Affairs facilities (e.g., assessment and plan notes, appointments, orders, and referrals). Additional future care activities may be listed in the Plan of Care section. Result Assessment and Plan Date Source Assessment and Plan No data available for this section 06/03/2025 Ambulatory Pharmacy Functional Status Combined list of recent functional and cognitive assessments recorded at Department of Defense and [place] Affairs ([place] Functional Terrell Measurement (FIM) Scale: 1 = Total Assistance (Subject = 0% +), 2 = Maximal Assistance (Subject = 25% +), 3 = Moderate Assistance (Subject = 50% +), 4 = Minimal Assistance (Subject = 75% +), 5 = Supervision, 6 = Modified Terrell (Device), 7 = Complete Terrell (Timely, Safely). Assessment Date/Time Source Assessment Type Assessment Skill Assessment Score Assessment Details No data available for this section
--- OUTSIDE RECORDS SUMMARY | 2025-06-03 06:55 | XMS_ITS | Clinical Summary ---
Author Organization [facility] Address [address] [place] [address] Care Team Providers Care Mechanical Development Engineer Name Role Phone Junito Marcano DO Primary Care Provider [phone] Allergies No known active allergies Medications promethazine (PHENERGAN) 25 mg tablet Take 1 tablet by mouth every 4 hours as needed. 20 tablet 01/25/2018 Active Social History Tobacco Use Types Packs/Day Years Used Date Smoking Tobacco: Never Assessed Sex and Gender Information Value Date Recorded Sex Assigned at Not on file Legal Sex Male 1:23 AM EDT Gender Identity Not on file Sexual Orientation Not on file Last Filed Vital Signs Vital Sign Reading Time Taken Comments Blood Pressure 139/90 01/25/2018 5:58 AM EDT Pulse 125 01/25/2018 5:58 AM EDT Temperature 36.7 C (98 F) 01/25/2018 5:58 AM EDT Respiratory Rate 20 01/25/2018 5:58 AM EDT Oxygen Saturation 100% 01/25/2018 5:58 AM EDT Inhaled Oxygen Concentration - - Weight 83.9 kg (185 lb) 01/25/2018 1:24 AM EDT Height 182.9 cm (6') 01/25/2018 1:24 AM EDT Body Mass Index 25.09 01/25/2018 1:24 AM EDT Plan of Treatment Not on file Insurance [id number] CHO[employer] O [employer] PPO Care Teams Mechanical Development Engineer Relationship Specialty Start Date End Date Junito Marcano DO [address] [place] [address] PCP - General Family Medicine 01/25/18
--- OUTSIDE RECORDS SUMMARY | 2025-06-03 06:55 | XMS_ITS | Patient Health Record ---
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 Name Role Phone Junito Marcano DO Primary Care Provider Unavailab le Allergies No Known Allergies Reason For Referral No Information Medications Medication SIG (Take, Route, Frequency, Duration) Notes Start Date End Date Status Escitalopram Oxalate Not-Taking Loratadine Not-Takin g Multi Vitamin Not-Ta wayne Social History Tobacco Use: Social History Observation Description Date Details (start date - stop date) Former Smoker NA - NA Tobacco Use/Smoking Question Answer Notes Patient is a former smoker Problems Problem Type SNOMED Code ICD Code Onset Dates Problem Status W/U Status Risk Notes Problem [id number] Pain in left ankle and joints of left foot (M25.572) Active confirmed Plan Of Treatment No Information Insurance Providers Payer Name Payer Address Payer Phone Subscriber Number Group Number Insured Name Patient Relationship to Insured Coverage Start Date Coverage End Date [facility] [address] [place] [phone] [id number] Kingsley Durant Self - patient is the insured Medical (General) History Medical History History ICD Code Left ankle pain M25.572
--- NOTE | 2025-06-03 07:00 | ECG_ITS ---
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 Measurements Intervals [place] Rate: 78 P: 44 [place]: 141 QRS: 78 QRSD: 91 T: 46 QT: 359 QTc: 411 Interpretive Statements SINUS RHYTHM Normal ECG No previous ECG available for comparison Electronically Signed On 06-03-2025 17:47:51 EDT by SANTY DYKES M.D.
--- NOTE | 2025-06-03 07:00 | CA_ITS ---
Patient Name: JACK PULIDO MR#: [id number] : 1985 Exam Date: 06/03/2025 Ordering Doctor: DR. DEREK WARNER ECHOCARDIOGRAM REPORT PROCEDURE: CA ECHO DOPPLER COMPLETE INDICATIONS: Palpitations COMPARISON: None. DESCRIPTION: COMPLETE ECHOCARDIOGRAM Real-time transthoracic echocardiography with 2D, M-mode, spectral and color flow Doppler performed. QUALITY: Technical quality was good. LEFT VENTRICLE: Normal chamber size. Normal left ventricular wall thickness. Normal systolic function. Estimated LVEF is 65% LV EF: Normal left ventricular ejection fraction, (>55%). DIASTOLIC: Normal diastolic function. ATRIAL SEPTUM: LEFT ATRIUM: Normal chamber size. RIGHT ATRIUM: Normal chamber size. RIGHT VENTRICLE: Normal chamber size. Normal right ventricular systolic function. TRICUSPID VALVE: Normal mobility and thickness. No stenosis with trivial regurgitation. No evidence of pulmonary hypertension. RVSP 33 mmHg MITRAL VALVE: Normal mobility and thickness. No evidence of mitral valve stenosis. There is no mitral annular calcification. Trivial mitral regurgitation. AORTIC VALVE: Normal trileaflet appearance. No visible sclerosis. Normal leaflet mobility. No evidence of aortic valve stenosis. No aortic regurgitation. AORTIC ROOT: Normal diameter and appearance, measuring 3.3 cm. PULMONIC VALVE: Normal thickness and mobility. No stenosis. PERICARDIUM: No evidence of pericardial effusion. IVC: Collapses with inspirations. PLEURA: CONCLUSION: 1. Normal ventricular function. Estimated LVEF is 65%. 2. Normal diastolic function. 3. No significant valvular dysfunction. 4. Normal right-sided pressures. Adult Echocardiography Procedure Report Left Ventricle LVEDD (3.7 - 5.6 cm): 3.99 cm LVESD (2.2 - 4.0 cm): 2.99 cm LVIVS thickness (0.6 - 1.2 cm): 0.97 cm LVPW thickness (0.5 - 1.0 cm): 1.04 cm e': 0.17 m/s E - e': 4.40 LVOT Max Gradient: 2.83 mm[Hg] LVOT Area (cm2): 0.84 m/s Peak Velocity (LVOT): 0.84 m/s Mean Velocity (LVOT): 0.63 m/s LVOT Diameter 2.12 cm Left Ventricular Ejection Fraction: 65 % Left Atrium LA Volume Index (2D A2C): 17.77 ml/m2 Left Atrium Systolic Dimension: 3.24 cm Mitral Valve MV E to A Ratio: 1.16 Mitral Valve A-Wave Peak Velocity: 0.66 m/s Mitral Valve E-Wave Peak Velocity: 0.77 m/s Right Ventricle Aorta AO Root Diam: 3.27 cm Aortic Valve AoV Area (Peak Khris): 2.34 cm2, 2.34 cm2 AoV Area (VTI): 2.30 cm2, 2.30 cm2 Peak Velocity(Antegrade Flow): 1.27 m/s Peak Gradient(Antegrade Flow): 6.41 mm[Hg] Mean Velocity(Antegrade Flow): 0.91 m/s Mean Gradient(Antegrade Flow): 3.76 mm[Hg] Velocity Time Integral: 27.27 cm Tricuspid Valve Peak Velocity (Regurgitant Flow): 2.73 m/s Pulmonic Valve Peak Gradient: 5.03 mm[Hg], 5.11 mm[Hg] Right Atrium Right Atrium Systolic Pressure: 34.50 ml, 34.50 ml Dictated by: Alxeandru Zazueta M.D. on 06/03/2025 at 17:04 Approved by: Alexandru Zazueta M.D. on 06/03/2025 at 17:09
== END 2025-06-03 06:50 | disposition home or self-care (01) ==
PROVIDERS: PCP Family Medicine; Visit Provider Chiropractor
DX: R00.2 Palpitations (principal)
CPT/HCPCS: 93005; 93306